=== PATIENT | female | born 1965 | race Caucasian/White ===

== ENCOUNTER 2017-04-24 06:21 | Day surgery (SDC) | payer BC ==
[~2017-04-24 06:21] MED LIST: Sodium Chloride 0.9% 10 ML Syringe FLUSH PRN; Sodium Chloride 0.9% 2.5 ML Syringe FLUSH PRN
--- NOTE | 2017-04-24 07:14 | PCM.PREANE ---
Preanesthetic Assessment - Anesthesia/Transfusion/Family Hx Anesthesia History: Prior Anesthesia Without Reaction Type of Anesthesia Reaction: Anesthesia Awareness Other Type of Anesthesia Reaction Comment: states she "woke up dring her tubal ligation" Family History of Anesthesia Reaction: No Transfusion History: No Prior Transfusion(s) Intubation History: Unknown - Review of Systems General: No Symptoms Pulmonary: No Symptoms Cardiovascular: No Symptoms Gastrointestinal: Abdominal pain Neurological: No Symptoms Other: Reports: None - Physical Assessment O2 Sat by Pulse Oximetry: 96 Respiratory Rate: 16 Vital Signs: Last Vital Signs Temp 36 C 04/24/17 06:35 Pulse 76 04/24/17 06:35 Resp 16 04/24/17 06:35 BP 154/75 H 04/24/17 06:35 Pulse Ox 96 04/24/17 06:35 Height: 1.63 m Weight: 128.82 kg ASA Class: 2 Mental Status: Alert & Oriented x3 Airway Class: Mallampati = 2 Dentition: Reports: Normal Dentition Thyro-Mental Finger Breadths: 3 Mouth Opening Finger Breadths: 3 ROM/Head Extension: Full Lungs: Clear to auscultation, Normal respiratory effort Cardiovascular: Regular Rate, Regular Rhythm - Allergies Allergies/Adverse Reactions: Allergies Allergy/AdvReac Type Severity Reaction Status Date / Time No Known Allergies Allergy Verified 04/22/17 14:15 - Blood Blood Available: No - Anesthesia Plan Pre-Op Medication Ordered: None - Acknowledgements Anesthesia Type Planned: MAC Pt an Appropriate Candidate for the Planned Anesthesia: Yes Alternatives and Risks of Anesthesia Discussed w Pt/Guardian: Yes Pt/Guardian Understands and Agrees with Anesthesia Plan: Yes PreAnesthesia Questionnaire Cardiovascular History: Reports: Hypertension Gastrointestinal History: Reports: Chronic Diarrhea, GERD, Other (See Below) ( fatty liver with increased AST and ALT) Musculoskeletal History: Reports: Fracture Other Musculoskeletal History: hx fx arm, nose and rt foot Neurological History: Reports: Migraines Psychiatric History: Reports: Addiction, Anxiety, Other (See Below) Other Psychiatric History: drinks 5-6 alcoholic beverages daily Endocrine/Metabolic History: Reports: Obesity/BMI 30+ (BMI 48.7) Other Endocrine/Metabolic History: prediabetic Oncologic (Cancer) History: Reports: Cervix, Other (See Below) Other Oncologic History: hysterectomy for cervical cancer Dermatologic History: Reports: Psoriasis Other Dermatologic History: psoriasis of scalp - Past Surgical History Head Surgeries/Procedures: Reports: None Female Surgical History: Reports: Hysterectomy, Tubal Ligation - SUBSTANCE USE Smoking Status *Q: Current Every Day Smoker (< 1ppd) Tobacco Use Within Last Twelve Months: Cigarettes Days Per Week of Alcohol Use: 7 Number of Drinks Per Day: 6 Total Drinks Per Week: 42 Recreational Drug Use History: No - HOME MEDS Home Medications: Home Meds ClonazePAM [KlonoPIN] 2 mg PO DAILY 04/22/17 [History] Nebivolol HCl [Bystolic] 10 mg PO DAILY 04/22/17 [History] Omeprazole 20 mg PO DAILY 04/22/17 [History] amLODIPine [Norvasc] 10 mg PO DAILY 04/22/17 [History] - CURRENT (IN HOUSE) MEDS Current Meds: Current Medications Sodium Chloride (Saline Flush) 10 ml FLUSH ASDIRECTED PRN PRN Reason: Keep Vein Open Sodium Chloride (Saline Flush) 2.5 ml FLUSH ASDIRECTED PRN PRN Reason: Keep Vein Open
[2017-04-24] MEDS ORDERED: Midazolam 1 MG/ML 2 ML SDV ONE (07:24)
[2017-04-24] MEDS ORDERED: fentaNYL 100 MCG/2 ML SDV ONE (07:24)
[2017-04-24] MEDS ORDERED: Lidocaine 2% 5 ML SDV ONE ×2 (07:24→07:30)
[2017-04-24] MEDS ORDERED: Propofol 200 MG/20 ML SDV ONE ×3 (07:24→08:31)
--- NOTE | 2017-04-24 09:01 | PCM.OPNOTE ---
- General Post-Op/Procedure Note Date of Surgery/Procedure: 04/24/17 Operative Procedure(s): Diagnostic EGD and colonoscopy Findings: Gastritis, duodenitis, inflammation of cecum, multiple sigmoid colon polyps Pre Op Diagnosis: gi bleed Post-Op Diagnosis: see above Anesthesia Technique: Moderate sedation Primary Surgeon: Zaina Pierson Condition: Good
[2017-04-24 09:19] VITALS: BP 135/69
--- NOTE | 2017-04-24 09:21 | PCM.POSTAN ---
POST ANESTHESIA ASSESSMENT - MENTAL STATUS Mental Status: alert, oriented - RESPIRATORY Respiratory Status: respiratory rate WNL, airway patent, O2 saturation stable - CARDIOVASCULAR CV Status: pulse rate WNL, blood pressure stable - GASTROINTESTINAL GI Status: no symptoms - POST OP HYDRATION Hydration Status: adequate & stable - OBSERVATIONS Free Text/Narrative:: no anesthesia problems
--- NOTE | 2017-04-25 02:51 | OR ---
SURGEON: SARMAD RANDALL MD DATE OF PROCEDURE: 04/24/2017 PREOPERATIVE DIAGNOSES: Melena and epigastric pain. POSTOPERATIVE DIAGNOSES: Gastritis, duodenitis, multiple polyps within the sigmoid colon, grade 2 hemorrhoids, and diverticulosis. PROCEDURE PERFORMED: Diagnostic EGD and colonoscopy. INSTRUMENT USED: Olympus endoscope and colonoscopy. ANESTHESIA: MAC. EXTENT OF EXAM: To the cecum, to the second portion of duodenum. PREPARATION: Good. LIMITATIONS: None. INDICATIONS FOR EXAMINATION: The patient is a 52-year-old female with a history of alcohol abuse. The patient presents with epigastric pain and diarrhea associated with bloody foul- smelling stools. Preoperative labs showed elevated AST and ALT, however, her hemoglobin and coagulation studies were normal. Ultrasound of the liver showed evidence of fatty infiltration of the liver, but was otherwise normal. The decision was made to proceed to the operating room for a diagnostic EGD and colonoscopy given the patient's concerning findings. We discussed the procedures as well as risks including bleeding, infection, or damage to surrounding structures including perforation. The patient verbalized understanding and wished to proceed. PROCEDURE IN DETAIL: The patient was brought to the endoscopy suite and placed in a beach chair position. A time-out was completed verifying the patient's name, age, date of , allergies, and procedure to be performed. A bite block was placed in the patient's mouth and monitored anesthesia care was induced. Continuous oxygen was provided via nasal cannula throughout the procedure. After adequate sedation was achieved, a well lubricated endoscope was placed in the patient's mouth and advanced under direct visualization to the second portion of the duodenum. This appeared normal and a photograph was taken. The scope was then pulled back. The duodenal bulb appeared to have superficial inflammation with no evidence of ulceration. Photograph was taken of this. The scope was brought into the stomach and a photograph taken of the pylorus as well as the esophageal hiatus. These appeared normal. The gastric mucosa appeared acutely inflamed consistent with gastritis. No ulceration was noted. Biopsies were taken of the gastric antrum, body, and fundus and sent to pathology for pathologic testing as well as H pylori. The scope was then brought into the distal esophagus and a photograph was taken of the GE junction. This was normal and the remainder of the esophageal mucosa was without pathology. The scope was removed from the patient and this portion of the procedure terminated. The patient was placed in a left lateral decubitus position. A digital rectal exam was performed. The patient had grade 2 hemorrhoids but the remainder of the exam was within normal limits. A well lubricated colonoscope was inserted in the rectum and advanced under direct visualization to the level of cecum. The cecum was identified by both visual and anatomic landmarks. A photograph was taken of the cecal cap, but I was unable to retroflex the scope within the cecum due to significant looping of the scope more proximally. The scope was then fully withdrawn while examining the color, texture, anatomy, and integrity mucosa from the cecum to the anal canal. The patient had mild diverticulosis within the sigmoid colon. She had multiple polyps throughout the colon medially within the sigmoid. These were all removed using a cold biopsy forceps. The cecum itself appeared slightly inflamed, however I believe this was due to barotrauma. Regardless, the biopsy was taken of the cecum as well. The scope was brought into the rectum and retroflexed to allow visualization of the anal canal opening. This appeared normal and a photograph was taken. The scope was straightened out and removed from the patient. Cecum to anus time was 22 minutes. The patient was transferred to the recovery room in stable condition. ENDOSCOPIC DIAGNOSES: Gastritis, duodenitis, multiple colonic polyps, grade 2 hemorrhoids, and diverticulosis. RECOMMENDATIONS: Continue on the pantoprazole and Carafate. We will see the patient in 2 weeks to discuss the remainder of the findings. ROBBIE SANCHEZ /[id number]
== END 2017-04-24 09:25 | disposition home or self-care (01) ==
LOC: MW.SDS 06:21
PROVIDERS: ATTEND Surgery
PROC: 0DB68ZX Excision of Stomach, Via Natural or Artificial Opening Endoscopic, Diagnostic (ICD-10-PCS; principal; 2017-04-24)
PROC: 0DBH8ZX Excision of Cecum, Via Natural or Artificial Opening Endoscopic, Diagnostic (ICD-10-PCS; 2017-04-24)
PROC: 0DBN8ZZ Excision of Sigmoid Colon, Via Natural or Artificial Opening Endoscopic (ICD-10-PCS; 2017-04-24)
DX: K63.5 Polyp of colon (principal); K64.1 Second degree hemorrhoids; K57.30 Diverticulosis of large intestine without perforation or abscess without bleeding; I10 Essential (primary) hypertension; K21.9 Gastro-esophageal reflux disease without esophagitis; F41.9 Anxiety disorder, unspecified; F17.210 Nicotine dependence, cigarettes, uncomplicated; E66.9 Obesity, unspecified; Z79.899 Other long term (current) drug therapy; Z90.710 Acquired absence of both cervix and uterus; Z85.41 Personal history of malignant neoplasm of cervix uteri; Z98.51 Tubal ligation status; Z68.42 Body mass index [BMI] 45.0-49.9, adult
CPT/HCPCS: 43239; 45380; J2250; J3010; 00740; 88305; 88312; J2704

== ENCOUNTER 2019-04-17 09:00 | Observation (INO) | payer BC ==
[2019-04-17] MEDS ORDERED: Albuterol/Ipratropium 3.0-0.5 MG/3 ML Neb Soln NEB ONE ×2 (09:03→16:38)
[2019-04-17] MEDS ORDERED: methylPREDNISolone Sodium Succinate 125 MG/2 ML SDV IVPUSH ONE (09:03)
[2019-04-17] MEDS ORDERED: Sodium Chloride 0.9% 2.5 ML Syringe FLUSH PRN (09:04)
[2019-04-17] MEDS ORDERED: Sodium Chloride 0.9% 10 ML Syringe FLUSH PRN (09:04)
[2019-04-17] MEDS ORDERED: Phenazopyridine 200 MG Tab PO ONE (09:11)
[2019-04-17] MEDS ORDERED: Morphine 2 MG/ML Syringe IVPUSH ONE (09:11)
[2019-04-17] MEDS ORDERED: Ondansetron 4 MG/2 ML SDV IVPUSH ONE (09:11)
--- NOTE | 2019-04-17 09:51 | CR ---
INDICATION: pain/sob INDICATION: Pain. Shortness of breath. TECHNIQUE: Chest 1 view. COMPARISON: None FINDINGS: Cardiovascular and mediastinum: Heart size and vasculature are normal in caliber and appearance. Mediastinum is within normal limits. Lungs and pleural space: Lungs are clear. No sign of infiltrate or mass. No sign of pleural effusion. No pneumothorax. Bones and soft tissues: No significant findings. IMPRESSION: Lungs are clear. Dictated by Dorian Fu MD @ 04/17/2019 9:48:18 AM Dictated by: Dorian Fu MD @ 04/17/2019 09:48:22 (Electronically Signed)
--- NOTE | 2019-04-17 09:58 | EDM.PDOC ---
ED HPI GENERAL MEDICAL PROBLEM - General Chief Complaint: Respiratory Problem Stated Complaint: BLADDER INFECTION OR UTI? Time Seen by Provider: 04/17/19 09:01 Source of Information: Reports: Patient History Limitations: Reports: No Limitations - History of Present Illness INITIAL COMMENTS - FREE TEXT/NARRATIVE: History of present illness: []Patient has a history of asthma and COPD arrives with shortness of breath and wheezing and complaints of bladder pain. Review of systems: As per history of present illness and below otherwise all systems reviewed and negative. Past medical history: As per history of present illness and as reviewed below otherwise noncontributory. Surgical history: As per history of present illness and as reviewed below otherwise noncontributory. Social history: No reported history of drug or alcohol abuse. Family history: As per history of present illness and as reviewed below otherwise noncontributory. Physical exam: General: Well developed, well nourished in NAD HEENT: Atraumatic, normocephalic, pupils reactive, negative for conjunctival pallor or scleral icterus, mucous membranes moist, throat clear, neck supple, nontender, trachea midline. Lungs: Clear to auscultation, breath sounds equal bilaterally, chest nontender. Heart: S1S2, regular, negative for clicks, rubs, or JVD. Abdomen: NABS, Soft, nondistended, nontender. Negative for masses or hepatosplenomegaly. Negative for costovertebral tenderness. Pelvis: Stable nontender. Genitourinary: Deferred. Rectal: Deferred. Extremities: Atraumatic, negative for cords or calf pain. Neurovascular unremarkable. Neuro: Awake, alert, oriented. Cranial nerves II through XII unremarkable. Cerebellum unremarkable. Motor and sensory unremarkable throughout. Exam nonfocal. Skin:warm and dry Diagnostics: EKG, chest x-ray, CBC, chemistry, BNP, UA, urine culture, troponin Therapeutics: DuoNeb, Solu-Medrol,, Zofran, Pyridium, mag ED Course: Improved Impression: COPD exacerbation, UTI Prescriptions: Codeine/guaifenesin syrup, Bactrim, Pyridium Plan: Take meds as directed, follow up with your primary care physician, return to ER if symptoms worsen or change. Definitive disposition and diagnosis as appropriate pending reevaluation and review of above. lower pelvic pain Pain Score (Numeric/FACES): 8 - Related Data Allergies Allergy/AdvReac Type Severity Reaction Status Date / Time No Known Allergies Allergy Verified 04/17/19 09:16 Home Meds: Home Meds ClonazePAM [KlonoPIN] 2 mg PO DAILY 04/22/17 [History] Nebivolol HCl [Bystolic] 10 mg PO DAILY 04/22/17 [History] Omeprazole 20 mg PO DAILY 04/22/17 [History] amLODIPine [Norvasc] 10 mg PO DAILY 04/22/17 [History] Methylcellulose [Fiber] 500 mg PO BID #60 tablet 04/24/17 [Rx] Phenazopyridine HCl [Pyridium] 200 mg PO TID #9 tablet 04/17/19 [Rx] Sulfamethoxazole/Trimethoprim [Bactrim Ds Tablet] 1 each PO BID #20 tablet 04/17 [Rx] guaiFENesin/Codeine Phosphate [Codeine-Guaifen 10-100 mg/5 ml] 5 ml PO TID PRN # 240 liquid 04/17/19 [Rx] Past Medical History Cardiovascular History: Reports: Hypertension Gastrointestinal History: Reports: Chronic Diarrhea, GERD, Other (See Below) Musculoskeletal History: Reports: Fracture Other Musculoskeletal History: hx fx arm, nose and rt foot Neurological History: Reports: Migraines Psychiatric History: Reports: Addiction, Anxiety Other Psychiatric History: drinks 5-6 alcoholic beverages daily Endocrine/Metabolic History: Reports: Obesity/BMI 30+ Other Endocrine/Metabolic History: prediabetic Oncologic (Cancer) History: Reports: Cervix, Other (See Below) Other Oncologic History: hysterectomy for cervical cancer Dermatologic History: Reports: Psoriasis Other Dermatologic History: psoriasis of scalp - Infectious Disease History Infectious Disease History: Reports: None - Past Surgical History Head Surgeries/Procedures: Reports: None Female Surgical History: Reports: Hysterectomy, Tubal Ligation Social & Family History - Family History Family Medical History: Noncontributory - Tobacco Use Smoking Status *Q: Current Every Day Smoker Years of Tobacco use: 30 Packs/Tins Daily: 1 - Recreational Drug Use Recreational Drug Use: No ED ROS GENERAL - Review of Systems Review Of Systems: ROS reveals no pertinent complaints other than HPI. ED EXAM, GENERAL - Physical Exam Exam: See Below Course - Vital Signs Last Recorded V/S: Last Vital Signs Temp 96.5 F 04/17/19 09:00 Pulse 73 04/17/19 09:00 Resp 22 H 04/17/19 09:00 BP 193/101 H 04/17/19 09:00 Pulse Ox 80 L 04/17/19 09:00 - Orders/Labs/Meds Orders: Active Orders 24 hr Category Date Time Status RT Aerosol Therapy [RC] ASDIRECTED Care 04/17/19 09:04 Active RT Aerosol Therapy [RC] ASDIRECTED Care 04/17/19 10:16 Active CULTURE URINE [RM] Routine Lab 04/17/19 09:40 Received Magnesium Sulfate/Water [Magnesium Sulfate in Water Med 04/17/19 10:39 Active Premix] 2 gm Premix Bag 1 bag IV ONETIME Sodium Chloride 0.9% [Saline Flush] Med 04/17/19 09:04 Active 10 ml FLUSH ASDIRECTED PRN Sodium Chloride 0.9% [Saline Flush] Med 04/17/19 09:04 Active 2.5 ml FLUSH ASDIRECTED PRN Saline Lock Insert [OM.PC] Stat Oth 04/17/19 09:04 Ordered Medication Orders Magnesium Sulfate 2 gm/ Premix 50 mls @ 25 mls/hr IV ONETIME ONE Stop: 04/17/19 12:38 Last Admin: 04/17/19 10:50 Dose: 25 mls/hr Sodium Chloride (Saline Flush) 10 ml FLUSH ASDIRECTED PRN PRN Reason: Keep Vein Open Sodium Chloride (Saline Flush) 2.5 ml FLUSH ASDIRECTED PRN PRN Reason: Keep Vein Open Labs: Laboratory Tests 04/17/19 04/17/19 04/17/19 Range/Units 09:15 09:15 09:15 WBC 13.80 H (4.0-11.0) K/uL RBC 5.12 (4.30-5.90) M/uL Hgb 16.9 H (12.0-16.0) g/dL Hct 48.8 H (36.0-46.0) % MCV 95.3 (80.0-98.0) fL MCH 33.0 H (27.0-32.0) pg MCHC 34.6 (31.0-37.0) g/dL RDW Std Deviation 45.5 (28.0-62.0) fl RDW Coeff of Susanna 13 (11.0-15.0) % Plt Count 221 (150-400) K/uL MPV 9.60 (7.40-12.00) fL Neut % (Auto) 71.7 (48.0-80.0) % Lymph % (Auto) 20.1 (16.0-40.0) % [place] % (Auto) 7.3 (0.0-15.0) % Eos % (Auto) 0.7 (0.0-7.0) % Baso % (Auto) 0.2 (0.0-1.5) % Neut # (Auto) 9.9 H (1.4-5.7) K/uL Lymph # (Auto) 2.8 H (0.6-2.4) K/uL [place] # (Auto) 1.0 H (0.0-0.8) K/uL Eos # (Auto) 0.1 (0.0-0.7) K/uL Baso # (Auto) 0.0 (0.0-0.1) K/uL Nucleated RBC % 0.0 /100WBC Nucleated RBCs # 0 K/uL Sodium 135 L (136-145) mmol/L Potassium 4.5 (3.5-5.1) mmol/L Chloride 98 (98-107) mmol/L Carbon Dioxide 31.3 (21.0-32.0) mmol/L BUN 11 (7.0-18.0) mg/dL Creatinine 0.8 (0.6-1.0) mg/dL Est Cr Clr Drug Dosing 70.23 mL/min Estimated GFR (MDRD) > 60.0 ml/min Glucose 252 H (74-106) mg/dL Calcium 9.0 (8.5-10.1) mg/dL Magnesium 1.8 (1.8-2.4) mg/dL Total Bilirubin 0.8 (0.2-1.0) mg/dL AST 64 H (15-37) IU/L ALT 115 H (14-63) IU/L Alkaline Phosphatase 175 H (46-116) U/L B-Natriuretic Peptide 36 (<100) PG/ML Total Protein 7.6 (6.4-8.2) g/dL Albumin 4.1 (3.4-5.0) g/dL Globulin 3.5 (2.6-4.0) g/dL Albumin/Globulin Ratio 1.2 (0.9-1.6) Urine Color Urine Appearance Urine pH (5.0-8.0) Ur Specific [place] (1.001-1.035) Urine Protein (NEGATIVE) mg/dL Urine Glucose (UA) (NEGATIVE) mg/dL Urine Ketones (NEGATIVE) mg/dL Urine Occult Blood (NEGATIVE) Urine Nitrite (NEGATIVE) Urine Bilirubin (NEGATIVE) Urine Ictotest Urine Urobilinogen (<2.0) EU/dL Ur Leukocyte Esterase (NEGATIVE) Urine RBC (0-2/HPF) Urine WBC (0-5/HPF) Ur Epithelial Cells (NONE-FEW) Amorphous Sediment (NEGATIVE) Urine Bacteria (NEGATIVE) Urine Mucus (NONE-MOD) 04/17/19 Range/Units 09:40 WBC (4.0-11.0) K/uL RBC (4.30-5.90) M/uL Hgb (12.0-16.0) g/dL Hct (36.0-46.0) % MCV (80.0-98.0) fL MCH (27.0-32.0) pg MCHC (31.0-37.0) g/dL RDW Std Deviation (28.0-62.0) fl RDW Coeff of Susanna (11.0-15.0) % Plt Count (150-400) K/uL MPV (7.40-12.00) fL Neut % (Auto) (48.0-80.0) % Lymph % (Auto) (16.0-40.0) % [place] % (Auto) (0.0-15.0) % Eos % (Auto) (0.0-7.0) % Baso % (Auto) (0.0-1.5) % Neut # (Auto) (1.4-5.7) K/uL Lymph # (Auto) (0.6-2.4) K/uL [place] # (Auto) (0.0-0.8) K/uL Eos # (Auto) (0.0-0.7) K/uL Baso # (Auto) (0.0-0.1) K/uL Nucleated RBC % /100WBC Nucleated RBCs # K/uL Sodium (136-145) mmol/L Potassium (3.5-5.1) mmol/L Chloride (98-107) mmol/L Carbon Dioxide (21.0-32.0) mmol/L BUN (7.0-18.0) mg/dL Creatinine (0.6-1.0) mg/dL Est Cr Clr Drug Dosing mL/min Estimated GFR (MDRD) ml/min Glucose (74-106) mg/dL Calcium (8.5-10.1) mg/dL Magnesium (1.8-2.4) mg/dL Total Bilirubin (0.2-1.0) mg/dL AST (15-37) IU/L ALT (14-63) IU/L Alkaline Phosphatase (46-116) U/L B-Natriuretic Peptide (<100) PG/ML Total Protein (6.4-8.2) g/dL Albumin (3.4-5.0) g/dL Globulin (2.6-4.0) g/dL Albumin/Globulin Ratio (0.9-1.6) Urine Color ORANGE Urine Appearance CLEAR Urine pH 5.5 (5.0-8.0) Ur Specific [place] >= 1.030 (1.001-1.035) Urine Protein 100 H (NEGATIVE) mg/dL Urine Glucose (UA) 250 H (NEGATIVE) mg/dL Urine Ketones NEGATIVE (NEGATIVE) mg/dL Urine Occult Blood TRACE-INTACT H (NEGATIVE) Urine Nitrite POSITIVE H (NEGATIVE) Urine Bilirubin SMALL H (NEGATIVE) Urine Ictotest POSITIVE Urine Urobilinogen 1.0 (<2.0) EU/dL Ur Leukocyte Esterase NEGATIVE (NEGATIVE) Urine RBC 1-2 (0-2/HPF) Urine WBC 4-6 (0-5/HPF) Ur Epithelial Cells OCCASIONAL (NONE-FEW) Amorphous Sediment FEW (NEGATIVE) Urine Bacteria 1+ H (NEGATIVE) Urine Mucus FEW (NONE-MOD) Meds: Medications Generic Name Dose Route Start Last Admin Trade Name Freq PRN Reason Stop Dose Admin Magnesium Sulfate 2 gm/ Premix 50 mls @ 25 mls/hr 04/17/19 10:39 04/17/19 10: 50 IV 04/17/19 12:38 25 mls/hr ONETIME ONE Administration Sodium Chloride 10 ml 04/17/19 09:04 Saline Flush FLUSH ASDIRECTED PRN Keep Vein Open Sodium Chloride 2.5 ml 04/17/19 09:04 Saline Flush FLUSH ASDIRECTED PRN Keep Vein Open Discontinued Medications Generic Name Dose Route Start Last Admin Trade Name Michael PRN Reason Stop Dose Admin Albuterol 10 mg 04/17/19 10:16 04/17/19 10:36 Proventil Neb Soln NEB 04/17/19 10:17 9 bottle ONETIME ONE Administration Albuterol/Ipratropium 3 ml 04/17/19 09:03 04/17/19 09:13 Duoneb 3.0-0.5 Mg/3 Ml NEB 04/17/19 09:04 3 ml ONETIME ONE Administration Ceftriaxone Sodium/Dextrose 1 50 mls @ 100 mls/hr 04/17/19 10:39 04/17/19 10: 50 gm/ Premix IV 04/17/19 11:08 100 mls/hr ONETIME ONE Administration Sodium Chloride 1,000 mls @ 999 mls/hr 04/17/19 10:39 04/17/19 10:56 Normal Saline IV 04/17/19 11:39 999 mls/hr .Bolus ONE Administration Methylprednisolone Sodium Succinate 125 mg 04/17/19 09:03 04/17/19 09:26 Solu-Medrol IVPUSH 04/17/19 09:04 125 mg ONETIME ONE Administration Morphine Sulfate 2 mg 04/17/19 09:11 04/17/19 09:26 Morphine IVPUSH 04/17/19 09:12 2 mg ONETIME ONE Administration Ondansetron HCl 4 mg 04/17/19 09:11 04/17/19 09:26 Zofran IVPUSH 04/17/19 09:12 4 mg ONETIME ONE Administration Phenazopyridine HCl 200 mg 04/17/19 09:11 04/17/19 09:27 Pyridium PO 04/17/19 09:12 200 mg ONETIME ONE Administration Departure - Departure Time of Disposition: 11:58 Disposition: Home, Self-Care 01 Condition: Good Clinical Impression: COPD exacerbation UTI (urinary tract infection) Qualifiers: Urinary tract infection type: site unspecified Hematuria presence: without hematuria Qualified Code(s): N39.0 - Urinary tract infection, site not specified - Discharge Information *PRESCRIPTION DRUG MONITORING PROGRAM REVIEWED*: No *COPY OF PRESCRIPTION DRUG MONITORING REPORT IN PATIENT [place]: No Prescriptions: guaiFENesin/Codeine Phosphate [Codeine-Guaifen 10-100 mg/5 ml] 5 ml PO TID PRN # 240 liquid PRN Reason: Cough Phenazopyridine HCl [Pyridium] 200 mg PO TID #9 tablet Sulfamethoxazole/Trimethoprim [Bactrim Ds Tablet] 1 each PO BID #20 tablet Referrals: PCP,None [Primary Care Provider] - Forms: ED Department Discharge Additional Instructions: The following information is given to patients seen in the emergency department who are being discharged to home. This information is to outline your options for follow-up care. We provide all patients seen in our emergency department with a follow-up referral. The need for follow-up, as well as the timing and circumstances, are variable depending upon the specifics of your emergency department visit. If you don't have a primary care physician on staff, we will provide you with a referral. We always advise you to contact your personal physician following an emergency department visit to inform them of the circumstance of the visit and for follow-up with them and/or the need for any referrals to a consulting specialist. The emergency department will also refer you to a specialist when appropriate. This referral assures that you have the opportunity for follow-up care with a specialist. All of these measure are taken in an effort to provide you with optimal care, which includes your follow-up. Under all circumstances we always encourage you to contact your private physician who remains a resource for coordinating your care. When calling for follow-up care, please make the office aware that this follow-up is from your recent emergency room visit. If for any reason you are refused follow-up, please contact the [facility] Emergency Department at and asked to speak to the emergency department charge nurse. Take meds as directed, follow up with your primary care physician, return to ER if symptoms worsen or change. [facility] [address] [place] [id number] - My Orders Last 24 Hours: My Active Orders 04/17/19 09:04 RT Aerosol Therapy [RC] ASDIRECTED Sodium Chloride 0.9% [Saline Flush] 10 ml FLUSH ASDIRECTED PRN Sodium Chloride 0.9% [Saline Flush] 2.5 ml FLUSH ASDIRECTED PRN Saline Lock Insert [OM.PC] Stat 04/17/19 09:40 CULTURE URINE [RM] Routine 04/17/19 10:16 RT Aerosol Therapy [RC] ASDIRECTED 04/17/19 10:39 Magnesium Sulfate/Water [Magnesium Sulfate in Water Premix] 2 gm Premix Bag 1 bag IV ONETIME - Assessment/Plan Last 24 Hours: My Active Orders 04/17/19 09:04 RT Aerosol Therapy [RC] ASDIRECTED Sodium Chloride 0.9% [Saline Flush] 10 ml FLUSH ASDIRECTED PRN Sodium Chloride 0.9% [Saline Flush] 2.5 ml FLUSH ASDIRECTED PRN Saline Lock Insert [OM.PC] Stat 04/17/19 09:40 CULTURE URINE [RM] Routine 04/17/19 10:16 RT Aerosol Therapy [RC] ASDIRECTED 04/17/19 10:39 Magnesium Sulfate/Water [Magnesium Sulfate in Water Premix] 2 gm Premix Bag 1 bag IV ONETIME
[2019-04-17] MEDS ORDERED: Albuterol 0.5% 5 MG/ML Neb Soln 20 ML Bottle NEB ONE (10:16)
[2019-04-17] MEDS ORDERED: Sodium Chloride 0.9% 1,000 ML IV ONE ×2 (10:39→17:21)
[2019-04-17] MEDS ORDERED: cefTRIAXone 1 GM in Premix Bag 1 BAG IV ONE (10:39)
[2019-04-17] MEDS ORDERED: Magnesium Sulfate/Water 2 GM in Premix Bag 1 BAG IV ONE (10:39)
[2019-04-17 11:02] LABS: CHLORIDE,CL 98 mmol/L (98-107); SODIUM,NA 135 mmol/L (136-145)
[2019-04-17] MEDS ORDERED: LORazepam 2 MG/ML SDV IVPUSH ONE (13:39)
[2019-04-17] MEDS ORDERED: Iopamidol 755 MG/ML 500 ML Multipack Bottle IVPUSH ONE (14:30)
--- NOTE | 2019-04-17 15:19 | CT ---
INDICATION: Dyspnea. TECHNIQUE: Contrast-enhanced CT PE 80 mL Isovue-370. COMPARISON: No comparison studies are available. Findings: Normal caliber thoracic aorta. Adequate opacification of the pulmonary arteries however evaluation is suboptimal given beam hardening artifact.No pericardial effusion. No mediastinal hilar adenopathy. No filling defects in the pulmonary arteries. Evaluation is suboptimal given beam hardening artifact. No pneumothorax. No central endobronchial lesion. Small 3 mm right lower lobe pulmonary nodule series 402 image 61. 9 mm left lower lobe ground-glass nodule on image 65. No suspicious bony lesions. Mild anterior compression fracture age indeterminate of the T8 vertebral body. Impression : 1. No pulmonary emboli. Normal caliber thoracic aorta. 2. No acute findings within the chest. 3. 9 millimeter left lower lobe ground-glass nodule. Follow-up in 3 months would be recommended. 4. 3 millimeter right lower lobe pulmonary nodule. Please note that all CT scans at this facility use dose modulation, iterative reconstruction, and/or weight-based dosing when appropriate to reduce radiation dose to as low as reasonably achievable. Dictated by Kinsey Yanez MD @ Apr 17 2019 3:04PM Signed by Dr. Kinsey Yanez @ Apr 17 2019 3:16PM
[2019-04-17] MEDS ORDERED: Acetaminophen 325 MG Tab PO PRN (16:30)
[2019-04-17] MEDS ORDERED: Ondansetron 4 MG Tab.DIS PO PRN (16:30)
[2019-04-17] MEDS ORDERED: Levofloxacin/Dextrose 5%-Water 750 MG in Premix Bag 1 BAG IV SCH (17:00)
[2019-04-17] MEDS ORDERED: Thiamine 100 MG in Sodium Chloride 0.9% 100 ML IV ONE (17:00)
--- NOTE | 2019-04-17 17:12 | PCM.HP ---
H&P History of Present Illness - General Date of Service: 04/17/19 Admit Problem/Dx: Admission Diagnosis/Problem Admission Diagnosis/Problem Hypoxia - History of Present Illness Initial Comments - Free Text/Narative: Melanie Jefferson is a 54 y/o female with history of alcohol and tobacco abuse who presented to the ER complaining of pelvic pain, dysuria and worsening shortness of breath. Patient states that for the past 2 days she has been having severe dysuria, urinary frequency and pelvic pain. In addition, she states that approximately 1 month ago she was treated for pneumonia but that for the past couple of days she has been having increased sputum production, worsening shortness of breath. No vomiting, chest, diarrhea. She smokes tobacco approximately half a pack/day. Drinks 3-5 shots of hard liquor/day. Denies alcohol withdrawal seizures, however, she states she takes carbamazepine for seizure prophylaxis. She is here visiting family and was suppose to leave today with her mom on the train. In the ER, CT chest was negative for PE. She was given a treatment of duonebs and methylprednisolone. Currently on supplemental O2 [place]. States that she still feels short of breath but symptoms are better. lower pelvic pain Pain Score (Numeric/FACES): 8 - Related Data Allergies/Adverse Reactions: Allergies Allergy/AdvReac Type Severity Reaction Status Date / Time No Known Allergies Allergy Verified 04/17/19 09:16 Home Medications: Home Meds ClonazePAM [KlonoPIN] 2 mg PO DAILY 04/22/17 [History] Nebivolol HCl [Bystolic] 10 mg PO DAILY 04/22/17 [History] Omeprazole 20 mg PO DAILY 04/22/17 [History] amLODIPine [Norvasc] 10 mg PO DAILY 04/22/17 [History] Methylcellulose [Fiber] 500 mg PO BID #60 tablet 04/24/17 [Rx] Past Medical History Cardiovascular History: Reports: Hypertension Gastrointestinal History: Reports: Chronic Diarrhea, GERD, Other (See Below) Musculoskeletal History: Reports: Fracture Other Musculoskeletal History: hx fx arm, nose and rt foot Neurological History: Reports: Migraines Psychiatric History: Reports: Addiction, Anxiety Other Psychiatric History: drinks 5-6 alcoholic beverages daily Endocrine/Metabolic History: Reports: Obesity/BMI 30+ Other Endocrine/Metabolic History: prediabetic Oncologic (Cancer) History: Reports: Cervix, Other (See Below) Other Oncologic History: hysterectomy for cervical cancer Dermatologic History: Reports: Psoriasis Other Dermatologic History: psoriasis of scalp - Infectious Disease History Infectious Disease History: Reports: None - Past Surgical History Head Surgeries/Procedures: Reports: None Female Surgical History: Reports: Hysterectomy, Tubal Ligation Social & Family History - Family History Family Medical History: Noncontributory - Tobacco Use Smoking Status *Q: Current Every Day Smoker Years of Tobacco use: 30 Packs/Tins Daily: 1 - Recreational Drug Use Recreational Drug Use: No H&P Review of Systems - Review of Systems: Review Of Systems: ROS reveals no pertinent complaints other than HPI. Exam - Exam Exam: See Below - Vital Signs Vital Signs: Last Vital Signs Temp 35.8 C 04/17/19 09:00 Pulse 78 04/17/19 16:01 Resp 22 H 04/17/19 16:01 BP 181/93 H 04/17/19 16:01 Pulse Ox 93 L 04/17/19 16:01 Weight: 129.274 kg - Exam Quality Assessment: Supplemental Oxygen General: Alert, Oriented, Cooperative HEENT: Mucosa Moist & [place] Lungs: Other (bilateral lung sounds with expiratory wheezing.) Cardiovascular: Regular Rate, Regular Rhythm GI/Abdominal Exam: Other (large habitus, tender in pelvic region. No rebound.) Back Exam: No: CVA Tenderness (L), CVA Tenderness (R) Extremities: No Pedal Edema Skin: Warm, Dry Neuro Extensive - Mental Status: Alert, Oriented x3 - Patient Data Lab Results Last 24 hrs: Laboratory Results - last 24 hr 04/17/19 04/17/19 04/17/19 Range/Units 09:15 09:15 09:15 WBC 13.80 H (4.0-11.0) K/uL RBC 5.12 (4.30-5.90) M/uL Hgb 16.9 H (12.0-16.0) g/dL Hct 48.8 H (36.0-46.0) % MCV 95.3 (80.0-98.0) fL MCH 33.0 H (27.0-32.0) pg MCHC 34.6 (31.0-37.0) g/dL RDW Std Deviation 45.5 (28.0-62.0) fl RDW Coeff of Susanna 13 (11.0-15.0) % Plt Count 221 (150-400) K/uL MPV 9.60 (7.40-12.00) fL Neut % (Auto) 71.7 (48.0-80.0) % Lymph % (Auto) 20.1 (16.0-40.0) % [place] % (Auto) 7.3 (0.0-15.0) % Eos % (Auto) 0.7 (0.0-7.0) % Baso % (Auto) 0.2 (0.0-1.5) % Neut # (Auto) 9.9 H (1.4-5.7) K/uL Lymph # (Auto) 2.8 H (0.6-2.4) K/uL [place] # (Auto) 1.0 H (0.0-0.8) K/uL Eos # (Auto) 0.1 (0.0-0.7) K/uL Baso # (Auto) 0.0 (0.0-0.1) K/uL Nucleated RBC % 0.0 /100WBC Nucleated RBCs # 0 K/uL Sodium 135 L (136-145) mmol/L Potassium 4.5 (3.5-5.1) mmol/L Chloride 98 (98-107) mmol/L Carbon Dioxide 31.3 (21.0-32.0) mmol/L BUN 11 (7.0-18.0) mg/dL Creatinine 0.8 (0.6-1.0) mg/dL Est Cr Clr Drug Dosing 70.23 mL/min Estimated GFR (MDRD) > 60.0 ml/min Glucose 252 H (74-106) mg/dL Calcium 9.0 (8.5-10.1) mg/dL Magnesium 1.8 (1.8-2.4) mg/dL Total Bilirubin 0.8 (0.2-1.0) mg/dL AST 64 H (15-37) IU/L ALT 115 H (14-63) IU/L Alkaline Phosphatase 175 H (46-116) U/L B-Natriuretic Peptide 36 (<100) PG/ML Total Protein 7.6 (6.4-8.2) g/dL Albumin 4.1 (3.4-5.0) g/dL Globulin 3.5 (2.6-4.0) g/dL Albumin/Globulin Ratio 1.2 (0.9-1.6) Urine Color Urine Appearance Urine pH (5.0-8.0) Ur Specific Nelson (1.001-1.035) Urine Protein (NEGATIVE) mg/dL Urine Glucose (UA) (NEGATIVE) mg/dL Urine Ketones (NEGATIVE) mg/dL Urine Occult Blood (NEGATIVE) Urine Nitrite (NEGATIVE) Urine Bilirubin (NEGATIVE) Urine Ictotest Urine Urobilinogen (<2.0) EU/dL Ur Leukocyte Esterase (NEGATIVE) Urine RBC (0-2/HPF) Urine WBC (0-5/HPF) Ur Epithelial Cells (NONE-FEW) Amorphous Sediment (NEGATIVE) Urine Bacteria (NEGATIVE) Urine Mucus (NONE-MOD) 04/17/19 Range/Units 09:40 WBC (4.0-11.0) K/uL RBC (4.30-5.90) M/uL Hgb (12.0-16.0) g/dL Hct (36.0-46.0) % MCV (80.0-98.0) fL MCH (27.0-32.0) pg MCHC (31.0-37.0) g/dL RDW Std Deviation (28.0-62.0) fl RDW Coeff of Susanna (11.0-15.0) % Plt Count (150-400) K/uL MPV (7.40-12.00) fL Neut % (Auto) (48.0-80.0) % Lymph % (Auto) (16.0-40.0) % [place] % (Auto) (0.0-15.0) % Eos % (Auto) (0.0-7.0) % Baso % (Auto) (0.0-1.5) % Neut # (Auto) (1.4-5.7) K/uL Lymph # (Auto) (0.6-2.4) K/uL [place] # (Auto) (0.0-0.8) K/uL Eos # (Auto) (0.0-0.7) K/uL Baso # (Auto) (0.0-0.1) K/uL Nucleated RBC % /100WBC Nucleated RBCs # K/uL Sodium (136-145) mmol/L Potassium (3.5-5.1) mmol/L Chloride (98-107) mmol/L Carbon Dioxide (21.0-32.0) mmol/L BUN (7.0-18.0) mg/dL Creatinine (0.6-1.0) mg/dL Est Cr Clr Drug Dosing mL/min Estimated GFR (MDRD) ml/min Glucose (74-106) mg/dL Calcium (8.5-10.1) mg/dL Magnesium (1.8-2.4) mg/dL Total Bilirubin (0.2-1.0) mg/dL AST (15-37) IU/L ALT (14-63) IU/L Alkaline Phosphatase (46-116) U/L B-Natriuretic Peptide (<100) PG/ML Total Protein (6.4-8.2) g/dL Albumin (3.4-5.0) g/dL Globulin (2.6-4.0) g/dL Albumin/Globulin Ratio (0.9-1.6) Urine Color ORANGE Urine Appearance CLEAR Urine pH 5.5 (5.0-8.0) Ur Specific [place] >= 1.030 (1.001-1.035) Urine Protein 100 H (NEGATIVE) mg/dL Urine Glucose (UA) 250 H (NEGATIVE) mg/dL Urine Ketones NEGATIVE (NEGATIVE) mg/dL Urine Occult Blood TRACE-INTACT H (NEGATIVE) Urine Nitrite POSITIVE H (NEGATIVE) Urine Bilirubin SMALL H (NEGATIVE) Urine Ictotest POSITIVE Urine Urobilinogen 1.0 (<2.0) EU/dL Ur Leukocyte Esterase NEGATIVE (NEGATIVE) Urine RBC 1-2 (0-2/HPF) Urine WBC 4-6 (0-5/HPF) Ur Epithelial Cells OCCASIONAL (NONE-FEW) Amorphous Sediment FEW (NEGATIVE) Urine Bacteria 1+ H (NEGATIVE) Urine Mucus FEW (NONE-MOD) Result Diagrams: 04/17/19 09:15 04/17/19 09:15 Problem List Initiated/Reviewed/Updated: Yes Orders Last 24hrs: Active Orders 24 hr Category Date Time Status Patient Status [ADT] Stat ADT 04/17/19 15:35 Active Intake and Output [RC] QSHIFT Care 04/17/19 16:30 Active Oxygen Therapy [RC] PRN Care 04/17/19 16:30 Active RT Aerosol Therapy [RC] ASDIRECTED Care 04/17/19 09:04 Active RT Aerosol Therapy [RC] ASDIRECTED Care 04/17/19 10:16 Active RT Aerosol Therapy [RC] ASDIRECTED Care 04/17/19 16:37 Active RT Aerosol Therapy [RC] ASDIRECTED Care 04/17/19 16:39 Active Up ad Hattie [RC] ASDIRECTED Care 04/17/19 16:30 Active VTE/DVT Education [RC] PER UNIT ROUTINE Care 04/17/19 16:30 Active Vital Signs [RC] Q4H Care 04/17/19 16:30 Active Regular Diet [DIET] Diet 04/17/19 Breakfast Active Blood Alcohol [ETHANOL BLOOD MEDICAL] [CHEM] Routine Lab 04/17/19 09:15 Received CULTURE BLOOD [BC] Stat Lab 04/17/19 16:51 Ordered CULTURE BLOOD [BC] Stat Lab 04/17/19 16:51 Ordered CULTURE URINE [RM] Routine Lab 04/17/19 09:40 Received DRUG SCREEN, URINE [URCHEM] Routine Lab 04/17/19 09:40 Received GLYCOSYLATED HEMOGLOBIN,HGBA1C [CHEM] Routine Lab 04/17/19 16:35 Ordered LIPASE [CHEM] Routine Lab 04/17/19 16:59 Ordered LIPID PANEL [CHEM] Routine Lab 04/17/19 09:15 Received Acetaminophen [Tylenol] Med 04/17/19 16:30 Active 650 mg PO Q4H PRN Albuterol/Ipratropium [DuoNeb 3.0-0.5 MG/3 ML] Med 04/17/19 16:38 Active 3 ml NEB Q4H PRN Enoxaparin [Lovenox] Med 04/17/19 16:30 Active 40 mg SUBCUT Q24H Folic Acid Med 04/17/19 21:00 Active 1 mg PO BEDTIME Ibuprofen [Motrin] Med 04/17/19 16:30 Active 600 mg PO Q6H PRN LORazepam [Ativan] Med 04/17/19 16:40 Active See Protocol IVPUSH Q4H PRN Levofloxacin/Dextrose 5%-Water [Levaquin in D5W 750 MG/ Med 04/17/19 17:30 Active 150 ML] 750 mg Premix Bag 1 bag IV Q24H Nicotine [Habitrol] Med 04/17/19 16:45 Active 14 mg TRDERM DAILY Ondansetron [Zofran ODT] Med 04/17/19 16:30 Active 4 mg PO Q4H PRN Sodium Chloride 0.9% [Saline Flush] Med 04/17/19 09:04 Active 10 ml FLUSH ASDIRECTED PRN Sodium Chloride 0.9% [Saline Flush] Med 04/17/19 09:04 Active 2.5 ml FLUSH ASDIRECTED PRN Temazepam [Restoril] Med 04/17/19 16:30 Active 15 mg PO BEDTIME PRN Thiamine [Vitamin B-1] Med 04/17/19 21:00 Active 100 mg PO BEDTIME Thiamine [Vitamin B-1] 100 mg Med 04/17/19 17:00 Active Sodium Chloride 0.9% [Normal Saline] 100 ml IV ONETIME methylPREDNISolone Sod Succ [Solu-MEDROL] Med 04/18/19 09:00 Active 125 mg IVPUSH DAILY Blood Culture x2 Reflex Set [OM.PC] Stat Oth 04/17/19 16:51 Ordered Saline Lock Insert [OM.PC] Stat Oth 04/17/19 09:04 Ordered Resuscitation Status Routine Resus Stat 04/17/19 16:30 Ordered Medication Orders Acetaminophen (Tylenol) 650 mg PO Q4H PRN PRN Reason: Pain (Mild 1-3)/fever Albuterol/Ipratropium (Duoneb 3.0-0.5 Mg/3 Ml) 3 ml NEB Q4H PRN PRN Reason: Shortness of Breath Enoxaparin Sodium (Lovenox) 40 mg SUBCUT Q24H [facility] Folic Acid (Folic Acid) 1 mg PO BEDTIME [facility] Thiamine HCl 100 mg/ Sodium (Chloride) 101 mls @ 202 mls/hr IV ONETIME ONE Stop: 04/17/19 17:29 Levofloxacin/Dextrose 750 mg/ (Premix) 150 mls @ 100 mls/hr IV Q24H [facility] Ibuprofen (Motrin) 600 mg PO Q6H PRN PRN Reason: Pain (mild 1-3) Lorazepam (Ativan) 0 mg IVPUSH Q4H PRN; Protocol PRN Reason: Withdrawal Symptoms Methylprednisolone Sodium Succinate (Solu-Medrol) 125 mg IVPUSH DAILY [place] Stop: 04/23/19 09:01 Nicotine (Habitrol) 14 mg TRDERM DAILY [facility] Ondansetron HCl (Zofran Odt) 4 mg PO Q4H PRN PRN Reason: nausea, able to take PO Sodium Chloride (Saline Flush) 10 ml FLUSH ASDIRECTED PRN PRN Reason: Keep Vein Open Sodium Chloride (Saline Flush) 2.5 ml FLUSH ASDIRECTED PRN PRN Reason: Keep Vein Open Temazepam (Restoril) 15 mg PO BEDTIME PRN PRN Reason: Sleep Thiamine HCl (Vitamin B-1) 100 mg PO BEDTIME [facility] Assessment/Plan Comment:: A: 1. Acute COPD exacerbation 2. Acute hypoxic respiratory failure 3. UTI 4. Alcohol abuse 5. Hypertension 6. Hyperglycemia 7. Elevated liver enzymes P: 1. Acute COPD exacerbation- supplemental O2 with goal O2 sats 88-92%. Started Levaquin 750 mg IV Q24H. Methylprednisolone daily. Duonebs Q4H PRN. 2. UTI, pending urine cultures. Will treat with Levaquin. 3. Alcohol abuse- CIWA monitoring and Lorazepam PRN. Thiamine and folic acid. 4. Hyperglycemia- will check HgA1c and lipid panel. 5. Elevated liver enzymes. Likely due to fatty liver disease. Will monitor and if still increasing will order RUQ U/S. Dispo:1-2 days
[2019-04-17] MEDS: Enoxaparin 40 MG/0.4 ML Syringe SUBCUT SCH (17:37)
[2019-04-17] MEDS: Nicotine 14 MG/24 Hr Patch TRDERM SCH (17:40)
[2019-04-17 17:53] LABS: HEMOGLOBIN A1C 7.4 % (4.5-6.2)
[2019-04-17] MEDS ORDERED: QUEtiapine 25 MG Tab PO SCH (18:00)
[2019-04-17] MEDS: Levofloxacin/Dextrose 5%-Water 750 MG in Premix Bag 1 BAG IV SCH (18:31)
[2019-04-17] MEDS: Ibuprofen 600 MG Tab PO PRN (18:40)
[2019-04-17] MEDS: Thiamine 100 MG Tab PO SCH (20:45)
[2019-04-17] MEDS: Folic Acid 1 MG Tab PO SCH (20:46)
[2019-04-17] MEDS: amLODIPine 5 MG Tab PO SCH (23:32)
[2019-04-17] MEDS: Omeprazole 20 MG Cap.CR PO SCH (23:32)
[2019-04-17] MEDS: QUEtiapine 25 MG Tab PO SCH (23:33)
[2019-04-17] MEDS: carBAMazepine 200 MG Tab PO SCH (23:33)
[2019-04-17] MEDS: Propranolol 20 MG Tab PO SCH (23:33)
[2019-04-17] MEDS: Temazepam 15 MG Cap PO PRN (23:37)
[2019-04-18 06:30] LABS: CHLORIDE,CL 103 mmol/L (98-107); SODIUM,NA 139 mmol/L (136-145)
[2019-04-18] MEDS: Albuterol/Ipratropium 3.0-0.5 MG/3 ML Neb Soln NEB PRN ×2 (06:56→18:40)
[2019-04-18] MEDS: carBAMazepine 200 MG Tab PO SCH ×2 (08:10→20:20)
[2019-04-18] MEDS: Nicotine 14 MG/24 Hr Patch TRDERM SCH (08:10)
[2019-04-18] MEDS: methylPREDNISolone Sodium Succinate 125 MG/2 ML SDV IVPUSH SCH (08:10)
[2019-04-18] MEDS: Ibuprofen 600 MG Tab PO PRN (08:25)
--- NOTE | 2019-04-18 08:38 | PCM.PN ---
- General Info Date of Service: 04/18/19 - Review of Systems Systems Review Comment:: reports shortness of breath has improved - Patient Data Vitals - Most Recent: Last Vital Signs Temp 36 C 04/18/19 08:05 Pulse 66 04/18/19 08:05 Resp 20 04/18/19 08:05 BP 137/90 04/18/19 08:05 Pulse Ox 93 L 04/18/19 08:05 Weight - Most Recent: 129.274 kg I&O - Last 24 Hours: Intake & Output 04/17/19 04/18/19 04/18/19 22:59 06:59 14:59 Intake Total 401 1942 Output Total 900 Balance 401 1042 Lab Results Last 24 Hours: Laboratory Results - last 24 hr 04/17/19 04/17/19 04/17/19 Range/Units 09:15 09:15 09:15 WBC 13.80 H (4.0-11.0) K/uL RBC 5.12 (4.30-5.90) M/uL Hgb 16.9 H (12.0-16.0) g/dL Hct 48.8 H (36.0-46.0) % MCV 95.3 (80.0-98.0) fL MCH 33.0 H (27.0-32.0) pg MCHC 34.6 (31.0-37.0) g/dL RDW Std Deviation 45.5 (28.0-62.0) fl RDW Coeff of Susanna 13 (11.0-15.0) % Plt Count 221 (150-400) K/uL MPV 9.60 (7.40-12.00) fL Neut % (Auto) 71.7 (48.0-80.0) % Lymph % (Auto) 20.1 (16.0-40.0) % Treasure % (Auto) 7.3 (0.0-15.0) % Eos % (Auto) 0.7 (0.0-7.0) % Baso % (Auto) 0.2 (0.0-1.5) % Neut # (Auto) 9.9 H (1.4-5.7) K/uL Lymph # (Auto) 2.8 H (0.6-2.4) K/uL Treasure # (Auto) 1.0 H (0.0-0.8) K/uL Eos # (Auto) 0.1 (0.0-0.7) K/uL Baso # (Auto) 0.0 (0.0-0.1) K/uL Nucleated RBC % 0.0 /100WBC Nucleated RBCs # 0 K/uL Sodium 135 L (136-145) mmol/L Potassium 4.5 (3.5-5.1) mmol/L Chloride 98 (98-107) mmol/L Carbon Dioxide 31.3 (21.0-32.0) mmol/L BUN 11 (7.0-18.0) mg/dL Creatinine 0.8 (0.6-1.0) mg/dL Est Cr Clr Drug Dosing 70.23 mL/min Estimated GFR (MDRD) > 60.0 ml/min Glucose 252 H (74-106) mg/dL Hemoglobin A1c (4.5-6.2) % Calcium 9.0 (8.5-10.1) mg/dL Magnesium 1.8 (1.8-2.4) mg/dL Total Bilirubin 0.8 (0.2-1.0) mg/dL AST 64 H (15-37) IU/L ALT 115 H (14-63) IU/L Alkaline Phosphatase 175 H (46-116) U/L B-Natriuretic Peptide 36 (<100) PG/ML Total Protein 7.6 (6.4-8.2) g/dL Albumin 4.1 (3.4-5.0) g/dL Globulin 3.5 (2.6-4.0) g/dL Albumin/Globulin Ratio 1.2 (0.9-1.6) Triglycerides (0-200) mg/dL Cholesterol (50-200) mg/dL LDL Cholesterol, Calc (60-180) mg/dL VLDL Cholesterol (5-55) mg/dL HDL Cholesterol (40-60) mg/dL Cholesterol/HDL Ratio (3.3-6.0) Lipase (73-393) U/L Urine Color Urine Appearance Urine pH (5.0-8.0) Ur Specific [place] (1.001-1.035) Urine Protein (NEGATIVE) mg/dL Urine Glucose (UA) (NEGATIVE) mg/dL Urine Ketones (NEGATIVE) mg/dL Urine Occult Blood (NEGATIVE) Urine Nitrite (NEGATIVE) Urine Bilirubin (NEGATIVE) Urine Ictotest Urine Urobilinogen (<2.0) EU/dL Ur Leukocyte Esterase (NEGATIVE) Urine RBC (0-2/HPF) Urine WBC (0-5/HPF) Ur Epithelial Cells (NONE-FEW) Amorphous Sediment (NEGATIVE) Urine Bacteria (NEGATIVE) Urine Mucus (NONE-MOD) Urine Opiates Screen (NEGATIVE) Ur Oxycodone Screen (NEGATIVE) Urine Methadone Screen (NEGATIVE) Ur Barbiturates Screen (NEGATIVE) Ur Phencyclidine Scrn (NEGATIVE) Ur Amphetamine Screen (NEGATIVE) U Methamphetamines Scrn (NEGATIVE) U Benzodiazepines Scrn (NEGATIVE) U Cocaine Metab Screen (NEGATIVE) U Marijuana (THC) Screen (NEGATIVE) Ethyl Alcohol mg/dL 04/17/19 04/17/19 04/17/19 Range/Units 09:15 09:40 09:40 WBC (4.0-11.0) K/uL RBC (4.30-5.90) M/uL Hgb (12.0-16.0) g/dL Hct (36.0-46.0) % MCV (80.0-98.0) fL MCH (27.0-32.0) pg MCHC (31.0-37.0) g/dL RDW Std Deviation (28.0-62.0) fl RDW Coeff of Susanna (11.0-15.0) % Plt Count (150-400) K/uL MPV (7.40-12.00) fL Neut % (Auto) (48.0-80.0) % Lymph % (Auto) (16.0-40.0) % Treasure % (Auto) (0.0-15.0) % Eos % (Auto) (0.0-7.0) % Baso % (Auto) (0.0-1.5) % Neut # (Auto) (1.4-5.7) K/uL Lymph # (Auto) (0.6-2.4) K/uL [place] # (Auto) (0.0-0.8) K/uL Eos # (Auto) (0.0-0.7) K/uL Baso # (Auto) (0.0-0.1) K/uL Nucleated RBC % /100WBC Nucleated RBCs # K/uL Sodium (136-145) mmol/L Potassium (3.5-5.1) mmol/L Chloride (98-107) mmol/L Carbon Dioxide (21.0-32.0) mmol/L BUN (7.0-18.0) mg/dL Creatinine (0.6-1.0) mg/dL Est Cr Clr Drug Dosing mL/min Estimated GFR (MDRD) ml/min Glucose (74-106) mg/dL Hemoglobin A1c (4.5-6.2) % Calcium (8.5-10.1) mg/dL Magnesium (1.8-2.4) mg/dL Total Bilirubin (0.2-1.0) mg/dL AST (15-37) IU/L ALT (14-63) IU/L Alkaline Phosphatase (46-116) U/L B-Natriuretic Peptide (<100) PG/ML Total Protein (6.4-8.2) g/dL Albumin (3.4-5.0) g/dL Globulin (2.6-4.0) g/dL Albumin/Globulin Ratio (0.9-1.6) Triglycerides 233 H (0-200) mg/dL Cholesterol 233 H (50-200) mg/dL LDL Cholesterol, Calc 140 (60-180) mg/dL VLDL Cholesterol 46 (5-55) mg/dL HDL Cholesterol 46 (40-60) mg/dL Cholesterol/HDL Ratio 5.1 (3.3-6.0) Lipase (73-393) U/L Urine Color ORANGE Urine Appearance CLEAR Urine pH 5.5 (5.0-8.0) Ur Specific [place] >= 1.030 (1.001-1.035) Urine Protein 100 H (NEGATIVE) mg/dL Urine Glucose (UA) 250 H (NEGATIVE) mg/dL Urine Ketones NEGATIVE (NEGATIVE) mg/dL Urine Occult Blood TRACE-INTACT H (NEGATIVE) Urine Nitrite POSITIVE H (NEGATIVE) Urine Bilirubin SMALL H (NEGATIVE) Urine Ictotest POSITIVE Urine Urobilinogen 1.0 (<2.0) EU/dL Ur Leukocyte Esterase NEGATIVE (NEGATIVE) Urine RBC 1-2 (0-2/HPF) Urine WBC 4-6 (0-5/HPF) Ur Epithelial Cells OCCASIONAL (NONE-FEW) Amorphous Sediment FEW (NEGATIVE) Urine Bacteria 1+ H (NEGATIVE) Urine Mucus FEW (NONE-MOD) Urine Opiates Screen POSITIVE (NEGATIVE) Ur Oxycodone Screen NEGATIVE (NEGATIVE) Urine Methadone Screen NEGATIVE (NEGATIVE) Ur Barbiturates Screen NEGATIVE (NEGATIVE) Ur Phencyclidine Scrn NEGATIVE (NEGATIVE) Ur Amphetamine Screen NEGATIVE (NEGATIVE) U Methamphetamines Scrn NEGATIVE (NEGATIVE) U Benzodiazepines Scrn NEGATIVE (NEGATIVE) U Cocaine Metab Screen NEGATIVE (NEGATIVE) U Marijuana (THC) Screen POSITIVE (NEGATIVE) Ethyl Alcohol < 3.0 mg/dL 04/17/19 04/17/19 04/18/19 Range/Units 16:59 17:10 05:26 WBC 9.66 (4.0-11.0) K/uL RBC 4.36 (4.30-5.90) M/uL Hgb 14.1 (12.0-16.0) g/dL Hct 43.2 (36.0-46.0) % MCV 99.1 H (80.0-98.0) fL MCH 32.3 H (27.0-32.0) pg MCHC 32.6 (31.0-37.0) g/dL RDW Std Deviation 47.3 (28.0-62.0) fl RDW Coeff of Susanna 13 (11.0-15.0) % Plt Count 182 (150-400) K/uL MPV 9.60 (7.40-12.00) fL Neut % (Auto) 52.6 (48.0-80.0) % Lymph % (Auto) 35.7 (16.0-40.0) % [place] % (Auto) 10.8 (0.0-15.0) % Eos % (Auto) 0.6 (0.0-7.0) % Baso % (Auto) 0.3 (0.0-1.5) % Neut # (Auto) 5.1 (1.4-5.7) K/uL Lymph # (Auto) 3.5 H (0.6-2.4) K/uL [place] # (Auto) 1.0 H (0.0-0.8) K/uL Eos # (Auto) 0.1 (0.0-0.7) K/uL Baso # (Auto) 0.0 (0.0-0.1) K/uL Nucleated RBC % 0.0 /100WBC Nucleated RBCs # 0 K/uL Sodium (136-145) mmol/L Potassium (3.5-5.1) mmol/L Chloride (98-107) mmol/L Carbon Dioxide (21.0-32.0) mmol/L BUN (7.0-18.0) mg/dL Creatinine (0.6-1.0) mg/dL Est Cr Clr Drug Dosing mL/min Estimated GFR (MDRD) ml/min Glucose (74-106) mg/dL Hemoglobin A1c 7.4 H (4.5-6.2) % Calcium (8.5-10.1) mg/dL Magnesium (1.8-2.4) mg/dL Total Bilirubin (0.2-1.0) mg/dL AST (15-37) IU/L ALT (14-63) IU/L Alkaline Phosphatase (46-116) U/L B-Natriuretic Peptide (<100) PG/ML Total Protein (6.4-8.2) g/dL Albumin (3.4-5.0) g/dL Globulin (2.6-4.0) g/dL Albumin/Globulin Ratio (0.9-1.6) Triglycerides (0-200) mg/dL Cholesterol (50-200) mg/dL LDL Cholesterol, Calc (60-180) mg/dL VLDL Cholesterol (5-55) mg/dL HDL Cholesterol (40-60) mg/dL Cholesterol/HDL Ratio (3.3-6.0) Lipase 83 (73-393) U/L Urine Color Urine Appearance Urine pH (5.0-8.0) Ur Specific [place] (1.001-1.035) Urine Protein (NEGATIVE) mg/dL Urine Glucose (UA) (NEGATIVE) mg/dL Urine Ketones (NEGATIVE) mg/dL Urine Occult Blood (NEGATIVE) Urine Nitrite (NEGATIVE) Urine Bilirubin (NEGATIVE) Urine Ictotest Urine Urobilinogen (<2.0) EU/dL Ur Leukocyte Esterase (NEGATIVE) Urine RBC (0-2/HPF) Urine WBC (0-5/HPF) Ur Epithelial Cells (NONE-FEW) Amorphous Sediment (NEGATIVE) Urine Bacteria (NEGATIVE) Urine Mucus (NONE-MOD) Urine Opiates Screen (NEGATIVE) Ur Oxycodone Screen (NEGATIVE) Urine Methadone Screen (NEGATIVE) Ur Barbiturates Screen (NEGATIVE) Ur Phencyclidine Scrn (NEGATIVE) Ur Amphetamine Screen (NEGATIVE) U Methamphetamines Scrn (NEGATIVE) U Benzodiazepines Scrn (NEGATIVE) U Cocaine Metab Screen (NEGATIVE) U Marijuana (THC) Screen (NEGATIVE) Ethyl Alcohol mg/dL 04/18/19 Range/Units 05:26 WBC (4.0-11.0) K/uL RBC (4.30-5.90) M/uL Hgb (12.0-16.0) g/dL Hct (36.0-46.0) % MCV (80.0-98.0) fL MCH (27.0-32.0) pg MCHC (31.0-37.0) g/dL RDW Std Deviation (28.0-62.0) fl RDW Coeff of Susanna (11.0-15.0) % Plt Count (150-400) K/uL MPV (7.40-12.00) fL Neut % (Auto) (48.0-80.0) % Lymph % (Auto) (16.0-40.0) % [place] % (Auto) (0.0-15.0) % Eos % (Auto) (0.0-7.0) % Baso % (Auto) (0.0-1.5) % Neut # (Auto) (1.4-5.7) K/uL Lymph # (Auto) (0.6-2.4) K/uL [place] # (Auto) (0.0-0.8) K/uL Eos # (Auto) (0.0-0.7) K/uL Baso # (Auto) (0.0-0.1) K/uL Nucleated RBC % /100WBC Nucleated RBCs # K/uL Sodium 139 (136-145) mmol/L Potassium 4.2 (3.5-5.1) mmol/L Chloride 103 (98-107) mmol/L Carbon Dioxide 30.2 (21.0-32.0) mmol/L BUN 15 (7.0-18.0) mg/dL Creatinine 0.7 (0.6-1.0) mg/dL Est Cr Clr Drug Dosing 80.26 mL/min Estimated GFR (MDRD) > 60.0 ml/min Glucose 243 H (74-106) mg/dL Hemoglobin A1c (4.5-6.2) % Calcium 8.0 L (8.5-10.1) mg/dL Magnesium (1.8-2.4) mg/dL Total Bilirubin 0.4 (0.2-1.0) mg/dL AST 52 H (15-37) IU/L ALT 84 H (14-63) IU/L Alkaline Phosphatase 145 H (46-116) U/L B-Natriuretic Peptide (<100) PG/ML Total Protein 6.0 L (6.4-8.2) g/dL Albumin 3.1 L (3.4-5.0) g/dL Globulin 2.9 (2.6-4.0) g/dL Albumin/Globulin Ratio 1.1 (0.9-1.6) Triglycerides (0-200) mg/dL Cholesterol (50-200) mg/dL LDL Cholesterol, Calc (60-180) mg/dL VLDL Cholesterol (5-55) mg/dL HDL Cholesterol (40-60) mg/dL Cholesterol/HDL Ratio (3.3-6.0) Lipase (73-393) U/L Urine Color Urine Appearance Urine pH (5.0-8.0) Ur Specific [place] (1.001-1.035) Urine Protein (NEGATIVE) mg/dL Urine Glucose (UA) (NEGATIVE) mg/dL Urine Ketones (NEGATIVE) mg/dL Urine Occult Blood (NEGATIVE) Urine Nitrite (NEGATIVE) Urine Bilirubin (NEGATIVE) Urine Ictotest Urine Urobilinogen (<2.0) EU/dL Ur Leukocyte Esterase (NEGATIVE) Urine RBC (0-2/HPF) Urine WBC (0-5/HPF) Ur Epithelial Cells (NONE-FEW) Amorphous Sediment (NEGATIVE) Urine Bacteria (NEGATIVE) Urine Mucus (NONE-MOD) Urine Opiates Screen (NEGATIVE) Ur Oxycodone Screen (NEGATIVE) Urine Methadone Screen (NEGATIVE) Ur Barbiturates Screen (NEGATIVE) Ur Phencyclidine Scrn (NEGATIVE) Ur Amphetamine Screen (NEGATIVE) U Methamphetamines Scrn (NEGATIVE) U Benzodiazepines Scrn (NEGATIVE) U Cocaine Metab Screen (NEGATIVE) U Marijuana (THC) Screen (NEGATIVE) Ethyl Alcohol mg/dL Med Orders - Current: Current Medications Acetaminophen (Tylenol) 650 mg PO Q4H PRN PRN Reason: Pain (Mild 1-3)/fever Albuterol/Ipratropium (Duoneb 3.0-0.5 Mg/3 Ml) 3 ml NEB Q4H PRN PRN Reason: Shortness of Breath Last Admin: 04/18/19 06:56 Dose: 3 ml Amlodipine Besylate (Norvasc) 10 mg PO BEDTIME [facility] Last Admin: 04/17/19 23:32 Dose: 10 mg Carbamazepine (Tegretol Tab) 200 mg PO BID [facility] Last Admin: 04/18/19 08:10 Dose: 200 mg Enoxaparin Sodium (Lovenox) 40 mg SUBCUT Q24H [facility] Last Admin: 04/17/19 17:37 Dose: 40 mg Folic Acid (Folic Acid) 1 mg PO BEDTIME [facility] Last Admin: 04/17/19 20:46 Dose: 1 mg Levofloxacin/Dextrose 750 mg/ (Premix) 150 mls @ 100 mls/hr IV Q24H [place] Last Admin: 04/17/19 18:31 Dose: 100 mls/hr Ibuprofen (Motrin) 600 mg PO Q6H PRN PRN Reason: Pain (mild 1-3) Last Admin: 04/18/19 08:25 Dose: 600 mg Lorazepam (Ativan) 0 mg IVPUSH Q4H PRN; Protocol PRN Reason: Withdrawal Symptoms Methylprednisolone Sodium Succinate (Solu-Medrol) 125 mg IVPUSH DAILY [facility] Stop: 04/23/19 09:01 Last Admin: 04/18/19 08:10 Dose: 125 mg Nicotine (Habitrol) 14 mg TRDERM DAILY [facility] Last Admin: 04/18/19 08:10 Dose: 14 mg Omeprazole (Omeprazole) 20 mg PO BEDTIME [facility] Last Admin: 04/17/19 23:32 Dose: 20 mg Ondansetron HCl (Zofran Odt) 4 mg PO Q4H PRN PRN Reason: nausea, able to take PO Propranolol HCl (Inderal) 20 mg PO BEDTIME [facility] Last Admin: 04/17/19 23:33 Dose: 20 mg Quetiapine Fumarate (Seroquel) 25 mg PO BEDTIME [facility] Last Admin: 04/17/19 23:33 Dose: 25 mg Sodium Chloride (Saline Flush) 10 ml FLUSH ASDIRECTED PRN PRN Reason: Keep Vein Open Sodium Chloride (Saline Flush) 2.5 ml FLUSH ASDIRECTED PRN PRN Reason: Keep Vein Open Temazepam (Restoril) 15 mg PO BEDTIME PRN PRN Reason: Sleep Last Admin: 04/17/19 23:37 Dose: 15 mg Thiamine HCl (Vitamin B-1) 100 mg PO BEDTIME [facility] Last Admin: 04/17/19 20:45 Dose: 100 mg Discontinued Medications Albuterol (Proventil Neb Soln) 10 mg NEB ONETIME ONE Stop: 04/17/19 10:17 Last Admin: 04/17/19 10:36 Dose: 9 bottle Albuterol/Ipratropium (Duoneb 3.0-0.5 Mg/3 Ml) 3 ml NEB ONETIME ONE Stop: 04/17/19 09:04 Last Admin: 04/17/19 09:13 Dose: 3 ml Albuterol/Ipratropium (Duoneb 3.0-0.5 Mg/3 Ml) 3 ml NEB NOW ONE Stop: 04/17/19 16:39 Last Admin: 04/17/19 17:06 Dose: 3 ml Ceftriaxone Sodium/Dextrose 1 (gm/ Premix) 50 mls @ 100 mls/hr IV ONETIME ONE Stop: 04/17/19 11:08 Last Admin: 04/17/19 10:50 Dose: 100 mls/hr Magnesium Sulfate 2 gm/ Premix 50 mls @ 25 mls/hr IV ONETIME ONE Stop: 04/17/19 12:38 Last Admin: 04/17/19 10:50 Dose: 25 mls/hr Sodium Chloride (Normal Saline) 1,000 mls @ 999 mls/hr IV .Bolus ONE Stop: 04/17/19 11:39 Last Admin: 04/17/19 10:56 Dose: 999 mls/hr Thiamine HCl 100 mg/ Sodium (Chloride) 101 mls @ 202 mls/hr IV ONETIME ONE Stop: 04/17/19 17:29 Last Admin: 04/17/19 17:45 Dose: 202 mls/hr Levofloxacin/Dextrose 750 mg/ (Premix) 150 mls @ 100 mls/hr IV Q24H [place] Sodium Chloride (Normal Saline) 1,000 mls @ 200 mls/hr IV STAT ONE Stop: 04/17/19 22:20 Last Admin: 04/17/19 17:57 Dose: 200 mls/hr Iopamidol (Isovue Multipack-370 (76%)) 80 ml IVPUSH ONETIME ONE Stop: 04/17/19 14:31 Last Admin: 04/17/19 14:31 Dose: 80 ml Lorazepam (Ativan) 0.5 mg IVPUSH ONETIME ONE Stop: 04/17/19 13:40 Last Admin: 04/17/19 13:47 Dose: 0.5 mg Methylprednisolone Sodium Succinate (Solu-Medrol) 125 mg IVPUSH ONETIME ONE Stop: 04/17/19 09:04 Last Admin: 04/17/19 09:26 Dose: 125 mg Morphine Sulfate (Morphine) 2 mg IVPUSH ONETIME ONE Stop: 04/17/19 09:12 Last Admin: 04/17/19 09:26 Dose: 2 mg Ondansetron HCl (Zofran) 4 mg IVPUSH ONETIME ONE Stop: 04/17/19 09:12 Last Admin: 04/17/19 09:26 Dose: 4 mg Phenazopyridine HCl (Pyridium) 200 mg PO ONETIME ONE Stop: 04/17/19 09:12 Last Admin: 04/17/19 09:27 Dose: 200 mg Quetiapine Fumarate (Seroquel) 25 mg PO QPM [facility] Last Admin: 04/17/19 23:13 Dose: Not Given - Exam General: Alert, Oriented Neck: Supple Lungs: Wheezing Cardiovascular: Regular Rate, Regular Rhythm GI/Abdominal Exam: Normal Bowel Sounds, Soft, Non-Tender Extremities: Non-Tender, No Pedal Edema Skin: Warm, Dry, Intact Neurological: No New Focal Deficit - Problem List Review Problem List Initiated/Reviewed/Updated: Yes - My Orders Last 24 Hours: My Active Orders 04/17/19 23:00 Omeprazole 20 mg PO BEDTIME Propranolol [Inderal] 20 mg PO BEDTIME QUEtiapine [SEROquel] 25 mg PO BEDTIME amLODIPine [Norvasc] 10 mg PO BEDTIME carBAMazepine [TEGretol Tab] 200 mg PO BID 04/19/19 05:11 BASIC METABOLIC PANEL,BMP [CHEM] AM CBC WITH AUTO DIFF [HEME] AM - Plan Plan:: 54 yo female admitted for COPD exacerbation and UTI COPD exacerbation: Duonebs, solumedrol, and elevatuin UTI: on levaquin cultures pending Alcohol abuse: on CIWA protocol with prn ativan, thiamin and folic acid
[2019-04-18] MEDS: Insulin Aspart 100 Units/ML 3 ML Pen SUBCUT SCH ×2 (12:34→18:05)
[2019-04-18] MEDS: Enoxaparin 40 MG/0.4 ML Syringe SUBCUT SCH (16:16)
[2019-04-18] MEDS: Levofloxacin/Dextrose 5%-Water 750 MG in Premix Bag 1 BAG IV SCH (17:50)
[2019-04-18] MEDS: Omeprazole 20 MG Cap.CR PO SCH (20:18)
[2019-04-18] MEDS: Thiamine 100 MG Tab PO SCH (20:20)
[2019-04-18] MEDS: Temazepam 15 MG Cap PO PRN (20:20)
[2019-04-18] MEDS: Folic Acid 1 MG Tab PO SCH (20:20)
[2019-04-18] MEDS: Propranolol 20 MG Tab PO SCH (20:21)
[2019-04-18] MEDS: amLODIPine 5 MG Tab PO SCH (20:21)
[2019-04-18] MEDS: QUEtiapine 25 MG Tab PO SCH (20:21)
[2019-04-19] MEDS: Albuterol/Ipratropium 3.0-0.5 MG/3 ML Neb Soln NEB PRN ×2 (00:20→14:16)
[2019-04-19] MEDS ORDERED: LORazepam 0.5 MG Tab PO ONE (03:20)
[2019-04-19 06:32] LABS: CHLORIDE,CL 102 mmol/L (98-107); SODIUM,NA 139 mmol/L (136-145)
[2019-04-19] MEDS: carBAMazepine 200 MG Tab PO SCH ×2 (08:18→21:09)
[2019-04-19] MEDS: Omeprazole 20 MG Cap.CR PO SCH (08:20)
[2019-04-19] MEDS: Nicotine 14 MG/24 Hr Patch TRDERM SCH (08:20)
[2019-04-19] MEDS: methylPREDNISolone Sodium Succinate 125 MG/2 ML SDV IVPUSH SCH (08:20)
[2019-04-19] MEDS: Insulin Aspart 100 Units/ML 3 ML Pen SUBCUT SCH ×3 (08:59→17:19)
[2019-04-19] MEDS ORDERED: Albuterol/Ipratropium 3.0-0.5 MG/3 ML Neb Soln NEB PRN (09:26)
--- NOTE | 2019-04-19 09:32 | PCM.PN ---
<Dave Pro - Last Filed: 04/19/19 09:34> - General Info Date of Service: 04/19/19 Subjective Update: No acute events overnight. Patient requiring 2 L O2 NC to keep sats above 90%. Feels short of breath when ambulating. No chest pain, abdominal pain, dysuria, diarrhea. - Patient Data Vitals - Most Recent: Last Vital Signs Temp 36.3 C 04/19/19 04:00 Pulse 72 04/19/19 04:00 Resp 20 04/19/19 04:00 BP 169/77 H 04/19/19 04:00 Pulse Ox 93 L 04/19/19 04:00 Weight - Most Recent: 129.274 kg I&O - Last 24 Hours: Intake & Output 04/18/19 04/19/19 04/19/19 22:59 06:59 14:59 Intake Total 1640 1300 Output Total 1700 800 Balance -60 500 Lab Results Last 24 Hours: Laboratory Results - last 24 hr 04/18/19 04/18/19 04/19/19 Range/Units 11:51 17:48 05:43 WBC 9.37 (4.0-11.0) K/uL RBC 4.33 (4.30-5.90) M/uL Hgb 14.2 (12.0-16.0) g/dL Hct 42.6 (36.0-46.0) % MCV 98.4 H (80.0-98.0) fL MCH 32.8 H (27.0-32.0) pg MCHC 33.3 (31.0-37.0) g/dL RDW Std Deviation 46.7 (28.0-62.0) fl RDW Coeff of Susanna 13 (11.0-15.0) % Plt Count 164 (150-400) K/uL MPV 9.70 (7.40-12.00) fL Neut % (Auto) 51.5 (48.0-80.0) % Lymph % (Auto) 38.7 (16.0-40.0) % Hamlin % (Auto) 8.8 (0.0-15.0) % Eos % (Auto) 0.6 (0.0-7.0) % Baso % (Auto) 0.4 (0.0-1.5) % Neut # (Auto) 4.8 (1.4-5.7) K/uL Lymph # (Auto) 3.6 H (0.6-2.4) K/uL Hamlin # (Auto) 0.8 (0.0-0.8) K/uL Eos # (Auto) 0.1 (0.0-0.7) K/uL Baso # (Auto) 0.0 (0.0-0.1) K/uL Nucleated RBC % 0.0 /100WBC Nucleated RBCs # 0 K/uL Sodium (136-145) mmol/L Potassium (3.5-5.1) mmol/L Chloride (98-107) mmol/L Carbon Dioxide (21.0-32.0) mmol/L BUN (7.0-18.0) mg/dL Creatinine (0.6-1.0) mg/dL Est Cr Clr Drug Dosing mL/min Estimated GFR (MDRD) ml/min Glucose (74-106) mg/dL POC Glucose 320 H 234 H (60-110) mg/dL Calcium (8.5-10.1) mg/dL 04/19/19 04/19/19 Range/Units 05:43 08:02 WBC (4.0-11.0) K/uL RBC (4.30-5.90) M/uL Hgb (12.0-16.0) g/dL Hct (36.0-46.0) % MCV (80.0-98.0) fL MCH (27.0-32.0) pg MCHC (31.0-37.0) g/dL RDW Std Deviation (28.0-62.0) fl RDW Coeff of Susanna (11.0-15.0) % Plt Count (150-400) K/uL MPV (7.40-12.00) fL Neut % (Auto) (48.0-80.0) % Lymph % (Auto) (16.0-40.0) % Hamlin % (Auto) (0.0-15.0) % Eos % (Auto) (0.0-7.0) % Baso % (Auto) (0.0-1.5) % Neut # (Auto) (1.4-5.7) K/uL Lymph # (Auto) (0.6-2.4) K/uL Hamlin # (Auto) (0.0-0.8) K/uL Eos # (Auto) (0.0-0.7) K/uL Baso # (Auto) (0.0-0.1) K/uL Nucleated RBC % /100WBC Nucleated RBCs # K/uL Sodium 139 (136-145) mmol/L Potassium 3.9 (3.5-5.1) mmol/L Chloride 102 (98-107) mmol/L Carbon Dioxide 29.7 (21.0-32.0) mmol/L BUN 19 H (7.0-18.0) mg/dL Creatinine 0.7 (0.6-1.0) mg/dL Est Cr Clr Drug Dosing 80.26 mL/min Estimated GFR (MDRD) > 60.0 ml/min Glucose 231 H (74-106) mg/dL POC Glucose 196 H (60-110) mg/dL Calcium 8.2 L (8.5-10.1) mg/dL Omar Results Last 24 Hours: Microbiology 04/17/19 09:40 Urine Culture - Final Urine, Clean Catch Escherichia Coli Normal Urogenital Kylah 04/17/19 17:21 Aerobic Blood Culture - Preliminary Blood - Venous - Lab Draw NO GROWTH AFTER 1 DAY Anaerobic Blood Culture - Preliminary NO GROWTH AFTER 1 DAY 04/17/19 17:10 Aerobic Blood Culture - Preliminary Blood - Venous NO GROWTH AFTER 1 DAY Anaerobic Blood Culture - Preliminary NO GROWTH AFTER 1 DAY Med Orders - Current: Current Medications Acetaminophen (Tylenol) 650 mg PO Q4H PRN PRN Reason: Pain (Mild 1-3)/fever Albuterol/Ipratropium (Duoneb 3.0-0.5 Mg/3 Ml) 3 ml NEB Q6HRRT PRN PRN Reason: Shortness of Breath Albuterol/Ipratropium (Duoneb 3.0-0.5 Mg/3 Ml) 3 ml NEB Q4HRRT PRN PRN Reason: Shortness of Breath Amlodipine Besylate (Norvasc) 10 mg PO BEDTIME [facility] Last Admin: 04/18/19 20:21 Dose: 10 mg Carbamazepine (Tegretol Tab) 200 mg PO BID [facility] Last Admin: 04/19/19 08:18 Dose: 200 mg Enoxaparin Sodium (Lovenox) 40 mg SUBCUT Q24H [facility] Last Admin: 04/18/19 16:16 Dose: 40 mg Folic Acid (Folic Acid) 1 mg PO BEDTIME [facility] Last Admin: 04/18/19 20:20 Dose: 1 mg Levofloxacin/Dextrose 750 mg/ (Premix) 150 mls @ 100 mls/hr IV Q24H [facility] Last Admin: 04/18/19 17:50 Dose: 100 mls/hr Ibuprofen (Motrin) 600 mg PO Q6H PRN PRN Reason: Pain (mild 1-3) Last Admin: 04/18/19 08:25 Dose: 600 mg Insulin Aspart (Novolog) 0 unit SUBCUT TIDAC [facility]; Protocol Last Admin: 04/19/19 08:59 Dose: 1 units Lorazepam (Ativan) 0 mg IVPUSH Q4H PRN; Protocol PRN Reason: Withdrawal Symptoms Methylprednisolone Sodium Succinate (Solu-Medrol) 125 mg IVPUSH DAILY [facility] Stop: 04/23/19 09:01 Last Admin: 04/19/19 08:20 Dose: 125 mg Nicotine (Habitrol) 14 mg TRDERM DAILY [facility] Last Admin: 04/19/19 08:20 Dose: 7 mg Omeprazole (Omeprazole) 20 mg PO ACBREAKFAST [facility] Last Admin: 04/19/19 08:20 Dose: 20 mg Ondansetron HCl (Zofran Odt) 4 mg PO Q4H PRN PRN Reason: nausea, able to take PO Propranolol HCl (Inderal) 20 mg PO BEDTIME [facility] Last Admin: 04/18/19 20:21 Dose: 20 mg Quetiapine Fumarate (Seroquel) 25 mg PO BEDTIME [facility] Last Admin: 04/18/19 20:21 Dose: 25 mg Sodium Chloride (Saline Flush) 10 ml FLUSH ASDIRECTED PRN PRN Reason: Keep Vein Open Sodium Chloride (Saline Flush) 2.5 ml FLUSH ASDIRECTED PRN PRN Reason: Keep Vein Open Temazepam (Restoril) 15 mg PO BEDTIME PRN PRN Reason: Sleep Last Admin: 04/18/19 20:20 Dose: 15 mg Thiamine HCl (Vitamin B-1) 100 mg PO BEDTIME [facility] Last Admin: 04/18/19 20:20 Dose: 100 mg Discontinued Medications Albuterol (Proventil Neb Soln) 10 mg NEB ONETIME ONE Stop: 04/17/19 10:17 Last Admin: 04/17/19 10:36 Dose: 9 bottle Albuterol/Ipratropium (Duoneb 3.0-0.5 Mg/3 Ml) 3 ml NEB ONETIME ONE Stop: 04/17/19 09:04 Last Admin: 04/17/19 09:13 Dose: 3 ml Albuterol/Ipratropium (Duoneb 3.0-0.5 Mg/3 Ml) 3 ml NEB NOW ONE Stop: 04/17/19 16:39 Last Admin: 04/17/19 17:06 Dose: 3 ml Albuterol/Ipratropium (Duoneb 3.0-0.5 Mg/3 Ml) 3 ml NEB Q4H PRN PRN Reason: Shortness of Breath Last Admin: 04/19/19 00:20 Dose: 3 ml Ceftriaxone Sodium/Dextrose 1 (gm/ Premix) 50 mls @ 100 mls/hr IV ONETIME ONE Stop: 04/17/19 11:08 Last Admin: 04/17/19 10:50 Dose: 100 mls/hr Magnesium Sulfate 2 gm/ Premix 50 mls @ 25 mls/hr IV ONETIME ONE Stop: 04/17/19 12:38 Last Admin: 04/17/19 10:50 Dose: 25 mls/hr Sodium Chloride (Normal Saline) 1,000 mls @ 999 mls/hr IV .Bolus ONE Stop: 04/17/19 11:39 Last Admin: 04/17/19 10:56 Dose: 999 mls/hr Thiamine HCl 100 mg/ Sodium (Chloride) 101 mls @ 202 mls/hr IV ONETIME ONE Stop: 04/17/19 17:29 Last Admin: 04/17/19 17:45 Dose: 202 mls/hr Levofloxacin/Dextrose 750 mg/ (Premix) 150 mls @ 100 mls/hr IV Q24H [facility] Sodium Chloride (Normal Saline) 1,000 mls @ 200 mls/hr IV STAT ONE Stop: 04/17/19 22:20 Last Admin: 04/17/19 17:57 Dose: 200 mls/hr Iopamidol (Isovue Multipack-370 (76%)) 80 ml IVPUSH ONETIME ONE Stop: 04/17/19 14:31 Last Admin: 04/17/19 14:31 Dose: 80 ml Lorazepam (Ativan) 0.5 mg IVPUSH ONETIME ONE Stop: 04/17/19 13:40 Last Admin: 04/17/19 13:47 Dose: 0.5 mg Lorazepam (Ativan) 0.5 mg PO ONETIME ONE Stop: 04/19/19 03:21 Last Admin: 04/19/19 04:00 Dose: 0.5 mg Methylprednisolone Sodium Succinate (Solu-Medrol) 125 mg IVPUSH ONETIME ONE Stop: 04/17/19 09:04 Last Admin: 04/17/19 09:26 Dose: 125 mg Morphine Sulfate (Morphine) 2 mg IVPUSH ONETIME ONE Stop: 04/17/19 09:12 Last Admin: 04/17/19 09:26 Dose: 2 mg Omeprazole (Omeprazole) 20 mg PO BEDTIME [facility] Last Admin: 04/18/19 20:18 Dose: 20 mg Ondansetron HCl (Zofran) 4 mg IVPUSH ONETIME ONE Stop: 04/17/19 09:12 Last Admin: 04/17/19 09:26 Dose: 4 mg Phenazopyridine HCl (Pyridium) 200 mg PO ONETIME ONE Stop: 04/17/19 09:12 Last Admin: 04/17/19 09:27 Dose: 200 mg Quetiapine Fumarate (Seroquel) 25 mg PO QPM [facility] Last Admin: 04/17/19 23:13 Dose: Not Given - Exam Quality Assessment: Supplemental Oxygen General: Alert, Oriented, Cooperative, No Acute Distress Lungs: Clear to Auscultation, Wheezing. No: Crackles Cardiovascular: Regular Rate, Regular Rhythm GI/Abdominal Exam: Normal Bowel Sounds, Soft, Non-Tender Extremities: Normal Inspection, No Pedal Edema Skin: Warm, Dry - Problem List Review Problem List Initiated/Reviewed/Updated: Yes - My Orders Last 24 Hours: My Active Orders 04/18/19 09:00 methylPREDNISolone Sod Succ [Solu-MEDROL] 125 mg IVPUSH DAILY 04/19/19 09:23 Echo Comp wo Cont [US] Routine 04/19/19 09:25 Consult to Physical Therapy [PT Evaluation and Treatment] [CONS] Routine 04/19/19 09:26 Albuterol/Ipratropium [DuoNeb 3.0-0.5 MG/3 ML] 3 ml NEB Q4HRRT PRN Albuterol/Ipratropium [DuoNeb 3.0-0.5 MG/3 ML] 3 ml NEB Q6HRRT PRN 04/19/19 09:27 RT Aerosol Therapy [RC] ASDIRECTED - Plan Plan:: A: 1. COPD exacerbation 2. E. coli UTI 3. Diabetes mellitus type 2 4. Alcohol abuse P: 1. COPD exacerbation- continue with scheduled Duonebs Q6H and PRN. Titrate O2 as tolerated. Continue methylprednisolone and Levaquin. Will check Echo. 2. E. coli UTI- continue with Levaquin 3. Diabetes mellitus type 2- ISS. Will need metformin as outpatient. 4. Alcohol abuse- continue CIWA monitoring. Dispo: likely tomorrow. <Víctor Perea - Last Filed: 04/19/19 10:48> - General Info Admission Dx/Problem (Free Text): I have seen and examined to patient independently of medical educator, Dave Valencia MD. I have discussed the case for care of this patient with him. I have reviewed and approve of the plan of care as outlined by medical educator. Please see orders. - Patient Data Vitals - Most Recent: Last Vital Signs Temp 36.3 C 04/19/19 04:00 Pulse 72 04/19/19 04:00 Resp 20 04/19/19 04:00 BP 169/77 H 04/19/19 04:00 Pulse Ox 93 L 04/19/19 04:00 I&O - Last 24 Hours: Intake & Output 04/18/19 04/19/19 04/19/19 22:59 06:59 14:59 Intake Total 1640 1300 Output Total 1700 800 Balance -60 500 Lab Results Last 24 Hours: Laboratory Results - last 24 hr 04/18/19 04/18/19 04/19/19 Range/Units 11:51 17:48 05:43 WBC 9.37 (4.0-11.0) K/uL RBC 4.33 (4.30-5.90) M/uL Hgb 14.2 (12.0-16.0) g/dL Hct 42.6 (36.0-46.0) % MCV 98.4 H (80.0-98.0) fL MCH 32.8 H (27.0-32.0) pg MCHC 33.3 (31.0-37.0) g/dL RDW Std Deviation 46.7 (28.0-62.0) fl RDW Coeff of Susanna 13 (11.0-15.0) % Plt Count 164 (150-400) K/uL MPV 9.70 (7.40-12.00) fL Neut % (Auto) 51.5 (48.0-80.0) % Lymph % (Auto) 38.7 (16.0-40.0) % Hamlin % (Auto) 8.8 (0.0-15.0) % Eos % (Auto) 0.6 (0.0-7.0) % Baso % (Auto) 0.4 (0.0-1.5) % Neut # (Auto) 4.8 (1.4-5.7) K/uL Lymph # (Auto) 3.6 H (0.6-2.4) K/uL Hamlin # (Auto) 0.8 (0.0-0.8) K/uL Eos # (Auto) 0.1 (0.0-0.7) K/uL Baso # (Auto) 0.0 (0.0-0.1) K/uL Nucleated RBC % 0.0 /100WBC Nucleated RBCs # 0 K/uL Sodium (136-145) mmol/L Potassium (3.5-5.1) mmol/L Chloride (98-107) mmol/L Carbon Dioxide (21.0-32.0) mmol/L BUN (7.0-18.0) mg/dL Creatinine (0.6-1.0) mg/dL Est Cr Clr Drug Dosing mL/min Estimated GFR (MDRD) ml/min Glucose (74-106) mg/dL POC Glucose 320 H 234 H (60-110) mg/dL Calcium (8.5-10.1) mg/dL 04/19/19 04/19/19 Range/Units 05:43 08:02 WBC (4.0-11.0) K/uL RBC (4.30-5.90) M/uL Hgb (12.0-16.0) g/dL Hct (36.0-46.0) % MCV (80.0-98.0) fL MCH (27.0-32.0) pg MCHC (31.0-37.0) g/dL RDW Std Deviation (28.0-62.0) fl RDW Coeff of Susanna (11.0-15.0) % Plt Count (150-400) K/uL MPV (7.40-12.00) fL Neut % (Auto) (48.0-80.0) % Lymph % (Auto) (16.0-40.0) % Hamlin % (Auto) (0.0-15.0) % Eos % (Auto) (0.0-7.0) % Baso % (Auto) (0.0-1.5) % Neut # (Auto) (1.4-5.7) K/uL Lymph # (Auto) (0.6-2.4) K/uL Hamlin # (Auto) (0.0-0.8) K/uL Eos # (Auto) (0.0-0.7) K/uL Baso # (Auto) (0.0-0.1) K/uL Nucleated RBC % /100WBC Nucleated RBCs # K/uL Sodium 139 (136-145) mmol/L Potassium 3.9 (3.5-5.1) mmol/L Chloride 102 (98-107) mmol/L Carbon Dioxide 29.7 (21.0-32.0) mmol/L BUN 19 H (7.0-18.0) mg/dL Creatinine 0.7 (0.6-1.0) mg/dL Est Cr Clr Drug Dosing 80.26 mL/min Estimated GFR (MDRD) > 60.0 ml/min Glucose 231 H (74-106) mg/dL POC Glucose 196 H (60-110) mg/dL Calcium 8.2 L (8.5-10.1) mg/dL Omar Results Last 24 Hours: Microbiology 04/17/19 09:40 Urine Culture - Final Urine, Clean Catch Escherichia Coli Normal Urogenital Kylah 04/17/19 17:21 Aerobic Blood Culture - Preliminary Blood - Venous - Lab Draw NO GROWTH AFTER 1 DAY Anaerobic Blood Culture - Preliminary NO GROWTH AFTER 1 DAY 04/17/19 17:10 Aerobic Blood Culture - Preliminary Blood - Venous NO GROWTH AFTER 1 DAY Anaerobic Blood Culture - Preliminary NO GROWTH AFTER 1 DAY Med Orders - Current: Current Medications Acetaminophen (Tylenol) 650 mg PO Q4H PRN PRN Reason: Pain (Mild 1-3)/fever Albuterol/Ipratropium (Duoneb 3.0-0.5 Mg/3 Ml) 3 ml NEB Q6HRRT PRN PRN Reason: Shortness of Breath Albuterol/Ipratropium (Duoneb 3.0-0.5 Mg/3 Ml) 3 ml NEB Q4HRRT PRN PRN Reason: Shortness of Breath Amlodipine Besylate (Norvasc) 10 mg PO BEDTIME [facility] Last Admin: 04/18/19 20:21 Dose: 10 mg Carbamazepine (Tegretol Tab) 200 mg PO BID [facility] Last Admin: 04/19/19 08:18 Dose: 200 mg Enoxaparin Sodium (Lovenox) 40 mg SUBCUT Q24H [facility] Last Admin: 04/18/19 16:16 Dose: 40 mg Folic Acid (Folic Acid) 1 mg PO BEDTIME [facility] Last Admin: 04/18/19 20:20 Dose: 1 mg Levofloxacin/Dextrose 750 mg/ (Premix) 150 mls @ 100 mls/hr IV Q24H [facility] Last Admin: 04/18/19 17:50 Dose: 100 mls/hr Ibuprofen (Motrin) 600 mg PO Q6H PRN PRN Reason: Pain (mild 1-3) Last Admin: 04/18/19 08:25 Dose: 600 mg Insulin Aspart (Novolog) 0 unit SUBCUT TIDAC [facility]; Protocol Last Admin: 04/19/19 08:59 Dose: 1 units Lorazepam (Ativan) 0 mg IVPUSH Q4H PRN; Protocol PRN Reason: Withdrawal Symptoms Methylprednisolone Sodium Succinate (Solu-Medrol) 125 mg IVPUSH DAILY [facility] Stop: 04/23/19 09:01 Last Admin: 04/19/19 08:20 Dose: 125 mg Nicotine (Habitrol) 14 mg TRDERM DAILY [facility] Last Admin: 04/19/19 08:20 Dose: 7 mg Omeprazole (Omeprazole) 20 mg PO ACBREAKFAST [facility] Last Admin: 04/19/19 08:20 Dose: 20 mg Ondansetron HCl (Zofran Odt) 4 mg PO Q4H PRN PRN Reason: nausea, able to take PO Propranolol HCl (Inderal) 20 mg PO BEDTIME [facility] Last Admin: 04/18/19 20:21 Dose: 20 mg Quetiapine Fumarate (Seroquel) 25 mg PO BEDTIME [facility] Last Admin: 04/18/19 20:21 Dose: 25 mg Sodium Chloride (Saline Flush) 10 ml FLUSH ASDIRECTED PRN PRN Reason: Keep Vein Open Sodium Chloride (Saline Flush) 2.5 ml FLUSH ASDIRECTED PRN PRN Reason: Keep Vein Open Temazepam (Restoril) 15 mg PO BEDTIME PRN PRN Reason: Sleep Last Admin: 04/18/19 20:20 Dose: 15 mg Thiamine HCl (Vitamin B-1) 100 mg PO BEDTIME [facility] Last Admin: 04/18/19 20:20 Dose: 100 mg Discontinued Medications Albuterol (Proventil Neb Soln) 10 mg NEB ONETIME ONE Stop: 04/17/19 10:17 Last Admin: 04/17/19 10:36 Dose: 9 bottle Albuterol/Ipratropium (Duoneb 3.0-0.5 Mg/3 Ml) 3 ml NEB ONETIME ONE Stop: 04/17/19 09:04 Last Admin: 04/17/19 09:13 Dose: 3 ml Albuterol/Ipratropium (Duoneb 3.0-0.5 Mg/3 Ml) 3 ml NEB NOW ONE Stop: 04/17/19 16:39 Last Admin: 04/17/19 17:06 Dose: 3 ml Albuterol/Ipratropium (Duoneb 3.0-0.5 Mg/3 Ml) 3 ml NEB Q4H PRN PRN Reason: Shortness of Breath Last Admin: 04/19/19 00:20 Dose: 3 ml Ceftriaxone Sodium/Dextrose 1 (gm/ Premix) 50 mls @ 100 mls/hr IV ONETIME ONE Stop: 04/17/19 11:08 Last Admin: 04/17/19 10:50 Dose: 100 mls/hr Magnesium Sulfate 2 gm/ Premix 50 mls @ 25 mls/hr IV ONETIME ONE Stop: 04/17/19 12:38 Last Admin: 04/17/19 10:50 Dose: 25 mls/hr Sodium Chloride (Normal Saline) 1,000 mls @ 999 mls/hr IV .Bolus ONE Stop: 04/17/19 11:39 Last Admin: 04/17/19 10:56 Dose: 999 mls/hr Thiamine HCl 100 mg/ Sodium (Chloride) 101 mls @ 202 mls/hr IV ONETIME ONE Stop: 04/17/19 17:29 Last Admin: 04/17/19 17:45 Dose: 202 mls/hr Levofloxacin/Dextrose 750 mg/ (Premix) 150 mls @ 100 mls/hr IV Q24H [facility] Sodium Chloride (Normal Saline) 1,000 mls @ 200 mls/hr IV STAT ONE Stop: 04/17/19 22:20 Last Admin: 04/17/19 17:57 Dose: 200 mls/hr Iopamidol (Isovue Multipack-370 (76%)) 80 ml IVPUSH ONETIME ONE Stop: 04/17/19 14:31 Last Admin: 04/17/19 14:31 Dose: 80 ml Lorazepam (Ativan) 0.5 mg IVPUSH ONETIME ONE Stop: 04/17/19 13:40 Last Admin: 04/17/19 13:47 Dose: 0.5 mg Lorazepam (Ativan) 0.5 mg PO ONETIME ONE Stop: 04/19/19 03:21 Last Admin: 04/19/19 04:00 Dose: 0.5 mg Methylprednisolone Sodium Succinate (Solu-Medrol) 125 mg IVPUSH ONETIME ONE Stop: 04/17/19 09:04 Last Admin: 04/17/19 09:26 Dose: 125 mg Morphine Sulfate (Morphine) 2 mg IVPUSH ONETIME ONE Stop: 04/17/19 09:12 Last Admin: 04/17/19 09:26 Dose: 2 mg Omeprazole (Omeprazole) 20 mg PO BEDTIME [facility] Last Admin: 04/18/19 20:18 Dose: 20 mg Ondansetron HCl (Zofran) 4 mg IVPUSH ONETIME ONE Stop: 04/17/19 09:12 Last Admin: 04/17/19 09:26 Dose: 4 mg Phenazopyridine HCl (Pyridium) 200 mg PO ONETIME ONE Stop: 04/17/19 09:12 Last Admin: 04/17/19 09:27 Dose: 200 mg Quetiapine Fumarate (Seroquel) 25 mg PO QPM [facility] Last Admin: 04/17/19 23:13 Dose: Not Given
[2019-04-19] MEDS: LORazepam 2 MG/ML SDV IVPUSH PRN ×3 (12:37→17:48)
[2019-04-19] MEDS: Enoxaparin 40 MG/0.4 ML Syringe SUBCUT SCH (16:43)
[2019-04-19] MEDS: Levofloxacin/Dextrose 5%-Water 750 MG in Premix Bag 1 BAG IV SCH (17:22)
[2019-04-19] MEDS ORDERED: Furosemide 40 MG/4 ML VIAL IVPUSH ONE (17:34)
[2019-04-19] MEDS: amLODIPine 5 MG Tab PO SCH (21:08)
[2019-04-19] MEDS: Folic Acid 1 MG Tab PO SCH (21:09)
[2019-04-19] MEDS: QUEtiapine 25 MG Tab PO SCH (21:09)
[2019-04-19] MEDS: Temazepam 15 MG Cap PO PRN (21:09)
[2019-04-19] MEDS: Propranolol 20 MG Tab PO SCH (21:09)
[2019-04-19] MEDS: Thiamine 100 MG Tab PO SCH (21:09)
[2019-04-20 05:26] LABS: CHLORIDE,CL 99 mmol/L (98-107); SODIUM,NA 138 mmol/L (136-145)
[2019-04-20] MEDS: Insulin Aspart 100 Units/ML 3 ML Pen SUBCUT SCH (08:26)
[2019-04-20] MEDS: Omeprazole 20 MG Cap.CR PO SCH (08:28)
[2019-04-20] MEDS: carBAMazepine 200 MG Tab PO SCH (08:29)
[2019-04-20] MEDS: Nicotine 14 MG/24 Hr Patch TRDERM SCH (08:29)
[2019-04-20] MEDS: methylPREDNISolone Sodium Succinate 125 MG/2 ML SDV IVPUSH SCH (08:31)
[2019-04-20 09:10] VITALS: BP 147/98
[2019-04-20] MEDS: Albuterol/Ipratropium 3.0-0.5 MG/3 ML Neb Soln NEB PRN (09:24)
--- NOTE | 2019-04-20 10:15 | PCM.DCSUM1 ---
<Dave Pro - Last Filed: 04/20/19 10:10> Discharge Summary - Hospital Course Free Text/Narrative:: 54 y/o female admitted for acute COPD exacerbation and found to have an E.coli UTI. She was started on Levaquin 750 mg IV daily and methylprednisolone for her COPD exacerbation. She was monitored for any withdrawal symptoms due to her history of alcohol abuse. She did not exhibit withdrawal symptoms. Initially she required oxygen supplementation at rest of 2 L which she was weaned off. Her oxygen saturation at rest was int he low 90's, however, with exertion she would drop temporarily into the high 80's. She was informed that she would need oxygen with exertion, however, patient wanted to be discharged to catch a train back home to [place]. She was advised to follow-up with her PCP and to stop smoking and abstain from alcohol and any mood altering substances. She was discharged home on Levaquin, Spiriva, Symbicort and prednisone taper. She will need to follow-up with her PCP in regards to her diabetes. - Discharge Data Discharge Date: 04/20/19 Discharge Disposition: Home, Self-Care 01 Condition: Good - Patient Summary/Data Consults: Consultations 04/19/19 09:25 Consult to Physical Therapy [PT Evaluation and Treatment] [CONS] Routine - Patient Instructions Diet: Diabetic Diet Activity: As Tolerated Notify Provider of: Fever, Increased Pain, Swelling and Redness, Nausea and/or Vomiting - Discharge Plan *PRESCRIPTION DRUG MONITORING PROGRAM REVIEWED*: Not Applicable *COPY OF PRESCRIPTION DRUG MONITORING REPORT IN PATIENT SAKINA: Not Applicable Prescriptions/Med Rec: Budesonide/Formoterol Fumarate [Symbicort 80-4.5 Mcg Inhaler] 1 puff IH BID #1 inhaler Levofloxacin [Levaquin] 750 mg PO DAILY 5 Days #5 tablet predniSONE [Prednisone] 40 mg PO DAILY #5 tablet Tiotropium [place] [Spiriva Respimat] 4 gm IH DAILY #1 mist.inhal Home Medications: Home Meds Omeprazole 20 mg PO DAILY 04/22/17 [History] amLODIPine [Norvasc] 10 mg PO DAILY 04/22/17 [History] Naltrexone 50 mg PO DAILY 04/17/19 [History] Naproxen Sodium [Aleve] 220 mg PO QPM 04/17/19 [History] Propranolol [Inderal] 20 mg PO QPM 04/17/19 [History] QUEtiapine Fumarate [Seroquel] 25 mg PO QPM 04/17/19 [History] carBAMazepine [Tegretol] 200 mg PO BID 04/17/19 [History] hydrOXYzine pamoate [Vistaril] 25 mg PO Q6H PRN 04/17/19 [History] Budesonide/Formoterol Fumarate [Symbicort 80-4.5 Mcg Inhaler] 1 puff IH BID #1 inhaler 04/20/19 [Rx] Levofloxacin [Levaquin] 750 mg PO DAILY 5 Days #5 tablet 04/20/19 [Rx] Tiotropium [place] [Spiriva Respimat] 4 gm IH DAILY #1 mist.inhal 04/20/19 [Rx] predniSONE [Prednisone] 40 mg PO DAILY #5 tablet 04/20/19 [Rx] Patient Handouts: Budesonide; Formoterol Inhalation, Chronic Obstructive Pulmonary Disease, [id number], Urinary Tract Infection, Adult, [id number], Tiotropium inhalation powder, Levofloxacin tablets, Prednisone oral solution - Discharge Summary/Plan Comment DC Time >30 min.: No - Patient Data Vitals - Most Recent: Last Vital Signs Temp 35.8 C 04/20/19 09:00 Pulse 68 04/20/19 09:00 Resp 18 04/20/19 09:00 BP 147/98 H 04/20/19 09:00 Pulse Ox 94 L 04/20/19 09:00 Weight - Most Recent: 129.274 kg I&O - Last 24 hours: Intake & Output 04/19/19 04/20/19 04/20/19 22:59 06:59 14:59 Intake Total 870 900 Output Total 1850 1900 Balance -980 -1000 Lab Results - Last 24 hrs: Laboratory Results - last 24 hr 04/19/19 04/19/19 04/20/19 Range/Units 11:47 16:35 04:53 Sodium 138 (136-145) mmol/L Potassium 3.7 (3.5-5.1) mmol/L Chloride 99 (98-107) mmol/L Carbon Dioxide 31.6 (21.0-32.0) mmol/L BUN 21 H (7.0-18.0) mg/dL Creatinine 0.8 (0.6-1.0) mg/dL Est Cr Clr Drug Dosing 70.23 mL/min Estimated GFR (MDRD) > 60.0 ml/min Glucose 257 H (74-106) mg/dL POC Glucose 384 H 297 H (60-110) mg/dL Calcium 8.6 (8.5-10.1) mg/dL 04/20/19 04/20/19 Range/Units 06:23 08:17 Sodium (136-145) mmol/L Potassium (3.5-5.1) mmol/L Chloride (98-107) mmol/L Carbon Dioxide (21.0-32.0) mmol/L BUN (7.0-18.0) mg/dL Creatinine (0.6-1.0) mg/dL Est Cr Clr Drug Dosing mL/min Estimated GFR (MDRD) ml/min Glucose (74-106) mg/dL POC Glucose 333 H 268 H (60-110) mg/dL Calcium (8.5-10.1) mg/dL JOSE Results - Last 24 hrs: Microbiology 04/17/19 17:21 Aerobic Blood Culture - Preliminary Blood - Venous - Lab Draw NO GROWTH AFTER 2 DAYS Anaerobic Blood Culture - Preliminary NO GROWTH AFTER 2 DAYS 04/17/19 17:10 Aerobic Blood Culture - Preliminary Blood - Venous NO GROWTH AFTER 2 DAYS Anaerobic Blood Culture - Preliminary NO GROWTH AFTER 2 DAYS 04/17/19 09:40 Urine Culture - Final Urine, Clean Catch Escherichia Coli Normal Urogenital [place] Med Orders - Current: Current Medications Acetaminophen (Tylenol) 650 mg PO Q4H PRN PRN Reason: Pain (Mild 1-3)/fever Albuterol/Ipratropium (Duoneb 3.0-0.5 Mg/3 Ml) 3 ml NEB Q6HRRT PRN PRN Reason: Shortness of Breath Last Admin: 04/20/19 09:24 Dose: 3 ml Albuterol/Ipratropium (Duoneb 3.0-0.5 Mg/3 Ml) 3 ml NEB Q4HRRT PRN PRN Reason: Shortness of Breath Amlodipine Besylate (Norvasc) 10 mg PO BEDTIME [facility] Last Admin: 04/19/19 21:08 Dose: 10 mg Carbamazepine (Tegretol Tab) 200 mg PO BID [facility] Last Admin: 04/20/19 08:29 Dose: 200 mg Enoxaparin Sodium (Lovenox) 40 mg SUBCUT Q24H [facility] Last Admin: 04/19/19 16:43 Dose: 40 mg Folic Acid (Folic Acid) 1 mg PO BEDTIME [facility] Last Admin: 04/19/19 21:09 Dose: 1 mg Levofloxacin/Dextrose 750 mg/ (Premix) 150 mls @ 100 mls/hr IV Q24H [facility] Last Admin: 04/19/19 17:22 Dose: 100 mls/hr Ibuprofen (Motrin) 600 mg PO Q6H PRN PRN Reason: Pain (mild 1-3) Last Admin: 04/18/19 08:25 Dose: 600 mg Insulin Aspart (Novolog) 0 unit SUBCUT TIDAC [facility]; Protocol Last Admin: 04/20/19 08:26 Dose: 9 units Lorazepam (Ativan) 0 mg IVPUSH Q4H PRN; Protocol PRN Reason: Withdrawal Symptoms Last Admin: 04/19/19 17:48 Dose: 1 mg Methylprednisolone Sodium Succinate (Solu-Medrol) 125 mg IVPUSH DAILY [facility] Stop: 04/23/19 09:01 Last Admin: 04/20/19 08:31 Dose: 125 mg Nicotine (Habitrol) 14 mg TRDERM DAILY [facility] Last Admin: 04/20/19 08:29 Dose: 14 mg Omeprazole (Omeprazole) 20 mg PO ACBREAKFAST [facility] Last Admin: 04/20/19 08:28 Dose: 20 mg Ondansetron HCl (Zofran Odt) 4 mg PO Q4H PRN PRN Reason: nausea, able to take PO Propranolol HCl (Inderal) 20 mg PO BEDTIME [facility] Last Admin: 04/19/19 21:09 Dose: 20 mg Quetiapine Fumarate (Seroquel) 25 mg PO BEDTIME [facility] Last Admin: 04/19/19 21:09 Dose: 25 mg Sodium Chloride (Saline Flush) 10 ml FLUSH ASDIRECTED PRN PRN Reason: Keep Vein Open Sodium Chloride (Saline Flush) 2.5 ml FLUSH ASDIRECTED PRN PRN Reason: Keep Vein Open Temazepam (Restoril) 15 mg PO BEDTIME PRN PRN Reason: Sleep Last Admin: 04/19/19 21:09 Dose: 15 mg Thiamine HCl (Vitamin B-1) 100 mg PO BEDTIME [facility] Last Admin: 04/19/19 21:09 Dose: 100 mg Discontinued Medications Albuterol (Proventil Neb Soln) 10 mg NEB ONETIME ONE Stop: 04/17/19 10:17 Last Admin: 04/17/19 10:36 Dose: 9 bottle Albuterol/Ipratropium (Duoneb 3.0-0.5 Mg/3 Ml) 3 ml NEB ONETIME ONE Stop: 04/17/19 09:04 Last Admin: 04/17/19 09:13 Dose: 3 ml Albuterol/Ipratropium (Duoneb 3.0-0.5 Mg/3 Ml) 3 ml NEB NOW ONE Stop: 04/17/19 16:39 Last Admin: 04/17/19 17:06 Dose: 3 ml Albuterol/Ipratropium (Duoneb 3.0-0.5 Mg/3 Ml) 3 ml NEB Q4H PRN PRN Reason: Shortness of Breath Last Admin: 04/19/19 00:20 Dose: 3 ml Furosemide (Lasix) 20 mg IVPUSH NOW ONE Stop: 04/19/19 17:35 Last Admin: 04/19/19 17:48 Dose: 20 mg Ceftriaxone Sodium/Dextrose 1 (gm/ Premix) 50 mls @ 100 mls/hr IV ONETIME ONE Stop: 04/17/19 11:08 Last Admin: 04/17/19 10:50 Dose: 100 mls/hr Magnesium Sulfate 2 gm/ Premix 50 mls @ 25 mls/hr IV ONETIME ONE Stop: 04/17/19 12:38 Last Admin: 04/17/19 10:50 Dose: 25 mls/hr Sodium Chloride (Normal Saline) 1,000 mls @ 999 mls/hr IV .Bolus ONE Stop: 04/17/19 11:39 Last Admin: 04/17/19 10:56 Dose: 999 mls/hr Thiamine HCl 100 mg/ Sodium (Chloride) 101 mls @ 202 mls/hr IV ONETIME ONE Stop: 04/17/19 17:29 Last Admin: 04/17/19 17:45 Dose: 202 mls/hr Levofloxacin/Dextrose 750 mg/ (Premix) 150 mls @ 100 mls/hr IV Q24H [place] Sodium Chloride (Normal Saline) 1,000 mls @ 200 mls/hr IV STAT ONE Stop: 04/17/19 22:20 Last Admin: 04/17/19 17:57 Dose: 200 mls/hr Iopamidol (Isovue Multipack-370 (76%)) 80 ml IVPUSH ONETIME ONE Stop: 04/17/19 14:31 Last Admin: 04/17/19 14:31 Dose: 80 ml Lorazepam (Ativan) 0.5 mg IVPUSH ONETIME ONE Stop: 04/17/19 13:40 Last Admin: 04/17/19 13:47 Dose: 0.5 mg Lorazepam (Ativan) 0.5 mg PO ONETIME ONE Stop: 04/19/19 03:21 Last Admin: 04/19/19 04:00 Dose: 0.5 mg Methylprednisolone Sodium Succinate (Solu-Medrol) 125 mg IVPUSH ONETIME ONE Stop: 04/17/19 09:04 Last Admin: 04/17/19 09:26 Dose: 125 mg Morphine Sulfate (Morphine) 2 mg IVPUSH ONETIME ONE Stop: 04/17/19 09:12 Last Admin: 04/17/19 09:26 Dose: 2 mg Omeprazole (Omeprazole) 20 mg PO BEDTIME [facility] Last Admin: 04/18/19 20:18 Dose: 20 mg Ondansetron HCl (Zofran) 4 mg IVPUSH ONETIME ONE Stop: 04/17/19 09:12 Last Admin: 04/17/19 09:26 Dose: 4 mg Phenazopyridine HCl (Pyridium) 200 mg PO ONETIME ONE Stop: 04/17/19 09:12 Last Admin: 04/17/19 09:27 Dose: 200 mg Quetiapine Fumarate (Seroquel) 25 mg PO QPM [facility] Last Admin: 04/17/19 23:13 Dose: Not Given <Víctor Perea - Last Filed: 04/21/19 07:48> Discharge Summary - Hospital Course HPI Initial Comments: I have seen and examined to patient independently of medical representative, Daev Valencia MD. I have discussed the case for care of this patient with him. I have reviewed and approve of the plan of care as outlined by medical representative. Please see orders. - Patient Summary/Data Consults: Consultations 04/19/19 09:25 Consult to Physical Therapy [PT Evaluation and Treatment] [CONS] Routine - Patient Data Vitals - Most Recent: Last Vital Signs Temp 35.8 C 04/20/19 09:00 Pulse 68 04/20/19 09:00 Resp 18 04/20/19 09:00 BP 147/98 H 04/20/19 09:00 Pulse Ox 91 L 04/20/19 10:00 Lab Results - Last 24 hrs: Laboratory Results - last 24 hr 04/20/19 Range/Units 08:17 POC Glucose 268 H (60-110) mg/dL JOSE Results - Last 24 hrs: Microbiology 04/17/19 17:21 Aerobic Blood Culture - Preliminary Blood - Venous - Lab Draw NO GROWTH AFTER 3 DAYS Anaerobic Blood Culture - Preliminary NO GROWTH AFTER 3 DAYS 04/17/19 17:10 Aerobic Blood Culture - Preliminary Blood - Venous NO GROWTH AFTER 3 DAYS Anaerobic Blood Culture - Preliminary NO GROWTH AFTER 3 DAYS Med Orders - Current: Current Medications Discontinued Medications Acetaminophen (Tylenol) 650 mg PO Q4H PRN PRN Reason: Pain (Mild 1-3)/fever Albuterol (Proventil Neb Soln) 10 mg NEB ONETIME ONE Stop: 04/17/19 10:17 Last Admin: 04/17/19 10:36 Dose: 9 bottle Albuterol/Ipratropium (Duoneb 3.0-0.5 Mg/3 Ml) 3 ml NEB ONETIME ONE Stop: 04/17/19 09:04 Last Admin: 04/17/19 09:13 Dose: 3 ml Albuterol/Ipratropium (Duoneb 3.0-0.5 Mg/3 Ml) 3 ml NEB NOW ONE Stop: 04/17/19 16:39 Last Admin: 04/17/19 17:06 Dose: 3 ml Albuterol/Ipratropium (Duoneb 3.0-0.5 Mg/3 Ml) 3 ml NEB Q4H PRN PRN Reason: Shortness of Breath Last Admin: 04/19/19 00:20 Dose: 3 ml Albuterol/Ipratropium (Duoneb 3.0-0.5 Mg/3 Ml) 3 ml NEB Q6HRRT PRN PRN Reason: Shortness of Breath Last Admin: 04/20/19 09:24 Dose: 3 ml Albuterol/Ipratropium (Duoneb 3.0-0.5 Mg/3 Ml) 3 ml NEB Q4HRRT PRN PRN Reason: Shortness of Breath Amlodipine Besylate (Norvasc) 10 mg PO BEDTIME [facility] Last Admin: 04/19/19 21:08 Dose: 10 mg Carbamazepine (Tegretol Tab) 200 mg PO BID [facility] Last Admin: 04/20/19 08:29 Dose: 200 mg Enoxaparin Sodium (Lovenox) 40 mg SUBCUT Q24H [facility] Last Admin: 04/19/19 16:43 Dose: 40 mg Folic Acid (Folic Acid) 1 mg PO BEDTIME [facility] Last Admin: 04/19/19 21:09 Dose: 1 mg Furosemide (Lasix) 20 mg IVPUSH NOW ONE Stop: 04/19/19 17:35 Last Admin: 04/19/19 17:48 Dose: 20 mg Ceftriaxone Sodium/Dextrose 1 (gm/ Premix) 50 mls @ 100 mls/hr IV ONETIME ONE Stop: 04/17/19 11:08 Last Admin: 04/17/19 10:50 Dose: 100 mls/hr Magnesium Sulfate 2 gm/ Premix 50 mls @ 25 mls/hr IV ONETIME ONE Stop: 04/17/19 12:38 Last Admin: 04/17/19 10:50 Dose: 25 mls/hr Sodium Chloride (Normal Saline) 1,000 mls @ 999 mls/hr IV .Bolus ONE Stop: 04/17/19 11:39 Last Admin: 04/17/19 10:56 Dose: 999 mls/hr Thiamine HCl 100 mg/ Sodium (Chloride) 101 mls @ 202 mls/hr IV ONETIME ONE Stop: 04/17/19 17:29 Last Admin: 04/17/19 17:45 Dose: 202 mls/hr Levofloxacin/Dextrose 750 mg/ (Premix) 150 mls @ 100 mls/hr IV Q24H [facility] Levofloxacin/Dextrose 750 mg/ (Premix) 150 mls @ 100 mls/hr IV Q24H [facility] Last Admin: 04/19/19 17:22 Dose: 100 mls/hr Sodium Chloride (Normal Saline) 1,000 mls @ 200 mls/hr IV STAT ONE Stop: 04/17/19 22:20 Last Admin: 04/17/19 17:57 Dose: 200 mls/hr Ibuprofen (Motrin) 600 mg PO Q6H PRN PRN Reason: Pain (mild 1-3) Last Admin: 04/18/19 08:25 Dose: 600 mg Insulin Aspart (Novolog) 0 unit SUBCUT TIDAC [facility]; Protocol Last Admin: 04/20/19 08:26 Dose: 9 units Iopamidol (Isovue Multipack-370 (76%)) 80 ml IVPUSH ONETIME ONE Stop: 04/17/19 14:31 Last Admin: 04/17/19 14:31 Dose: 80 ml Lorazepam (Ativan) 0.5 mg IVPUSH ONETIME ONE Stop: 04/17/19 13:40 Last Admin: 04/17/19 13:47 Dose: 0.5 mg Lorazepam (Ativan) 0 mg IVPUSH Q4H PRN; Protocol PRN Reason: Withdrawal Symptoms Last Admin: 04/19/19 17:48 Dose: 1 mg Lorazepam (Ativan) 0.5 mg PO ONETIME ONE Stop: 04/19/19 03:21 Last Admin: 04/19/19 04:00 Dose: 0.5 mg Methylprednisolone Sodium Succinate (Solu-Medrol) 125 mg IVPUSH ONETIME ONE Stop: 04/17/19 09:04 Last Admin: 04/17/19 09:26 Dose: 125 mg Methylprednisolone Sodium Succinate (Solu-Medrol) 125 mg IVPUSH DAILY [facility] Stop: 04/23/19 09:01 Last Admin: 04/20/19 08:31 Dose: 125 mg Morphine Sulfate (Morphine) 2 mg IVPUSH ONETIME ONE Stop: 04/17/19 09:12 Last Admin: 04/17/19 09:26 Dose: 2 mg Nicotine (Habitrol) 14 mg TRDERM DAILY [facility] Last Admin: 04/20/19 08:29 Dose: 14 mg Omeprazole (Omeprazole) 20 mg PO BEDTIME [facility] Last Admin: 04/18/19 20:18 Dose: 20 mg Omeprazole (Omeprazole) 20 mg PO ACBREAKFAST [facility] Last Admin: 04/20/19 08:28 Dose: 20 mg Ondansetron HCl (Zofran) 4 mg IVPUSH ONETIME ONE Stop: 04/17/19 09:12 Last Admin: 04/17/19 09:26 Dose: 4 mg Ondansetron HCl (Zofran Odt) 4 mg PO Q4H PRN PRN Reason: nausea, able to take PO Phenazopyridine HCl (Pyridium) 200 mg PO ONETIME ONE Stop: 04/17/19 09:12 Last Admin: 04/17/19 09:27 Dose: 200 mg Propranolol HCl (Inderal) 20 mg PO BEDTIME [facility] Last Admin: 04/19/19 21:09 Dose: 20 mg Quetiapine Fumarate (Seroquel) 25 mg PO QPM [facility] Last Admin: 04/17/19 23:13 Dose: Not Given Quetiapine Fumarate (Seroquel) 25 mg PO BEDTIME [facility] Last Admin: 04/19/19 21:09 Dose: 25 mg Sodium Chloride (Saline Flush) 10 ml FLUSH ASDIRECTED PRN PRN Reason: Keep Vein Open Sodium Chloride (Saline Flush) 2.5 ml FLUSH ASDIRECTED PRN PRN Reason: Keep Vein Open Temazepam (Restoril) 15 mg PO BEDTIME PRN PRN Reason: Sleep Last Admin: 04/19/19 21:09 Dose: 15 mg Thiamine HCl (Vitamin B-1) 100 mg PO BEDTIME [facility] Last Admin: 04/19/19 21:09 Dose: 100 mg
== END 2019-04-20 10:30 | disposition home or self-care (01) ==
LOC: MW.ED 09:00 → MW.MS 15:38
PROVIDERS: ADMIT Internal Medicine; ATTEND Internal Medicine
DX: J44.1 Chronic obstructive pulmonary disease with (acute) exacerbation (principal); N39.0 Urinary tract infection, site not specified; B96.20 Unspecified Escherichia coli [E. coli] as the cause of diseases classified elsewhere; J96.01 Acute respiratory failure with hypoxia; R94.5 Abnormal results of liver function studies; I10 Essential (primary) hypertension; E11.65 Type 2 diabetes mellitus with hyperglycemia; K21.9 Gastro-esophageal reflux disease without esophagitis; F17.210 Nicotine dependence, cigarettes, uncomplicated; F10.10 Alcohol abuse, uncomplicated; Z79.899 Other long term (current) drug therapy
CPT/HCPCS: 36415; 71045; 71275; 80048; 80053; 80061; 80305; 81001; 82962; 83036; 83690; 83735; 83880; 85025; 87040; 87086; 87088; 87186; 93306; 94640; 96361; 96365; 96366; 96367; 96372; 96375; 96376; 99285; A4217; A9270; G0378; G0480; J0696; J1650; J1815; J1940; J1956; J2060; J2270; J2405; J2930; J3411; J3475; J7030; J7040; Q9967; J7620-GY